=== PATIENT | male | born 1985 | race African-American/Black ===

== ENCOUNTER 2017-04-10 08:49 | Inpatient (IN) ==
[2017-04-10] MEDS ORDERED: ONDANSETRON 4 MG/2 ML VIAL IV STA (09:12)
[2017-04-10] MEDS ORDERED: SODIUM CHLORIDE 0.9% 1,000 ML IV STA (09:12)
[2017-04-10] MEDS ORDERED: hydrALAZINE 20 MG/1 ML VIAL IV STA (09:13)
[2017-04-10] MEDS ORDERED: METOPROLOL TARTRATE 5 MG/5 ML VIAL IV STA ×2 (09:13→10:10)
[2017-04-10] MEDS ORDERED: ONDANSETRON 4 MG/2 ML VIAL ONE (09:20)
[2017-04-10] MEDS ORDERED: hydrALAZINE 20 MG/1 ML VIAL ONE (09:20)
[2017-04-10] MEDS ORDERED: METOPROLOL TARTRATE 5 MG/5 ML VIAL IV ONE ×2 (09:21→10:10)
--- NOTE | 2017-04-10 09:23 | Emergency Department Note ---
Sarah Chan Rolonda, am scribing for, and in the presence of, Aidan Pelayo MD 09: 12. Gita Chan James D, MD, personally performed the services described in this documentation, ascribed by Lionel Smith in my presence, and it is both accurate and complete 915 . Arrival - Arrival Chief Complaint: Abdominal / Flank Pain Stated Complaint: eyes red and abd pain ED Nursing Triage Note: pt ambulatory to triage with c/o havng abd pain with n/ v. pt states onset last night around 1900. pt states he thinks its the fast food he ate yestereday. pt states he hasnt been able to keep his bp meds down so bp is elevated. Mode of Arrival: Ambulatory Limitations: No Limitations Source: Patient, Old Records Reviewed, RN Notes Reviewed - History of Present Illness HPI Narrative: Pt is a 32 y/o male who ambulated to the ED with c/o of right sided abdomen pain with an onset of hours ago. Pt has a PMHx of HTN. Pt stated that the pain started last night while earing [employer]. Pt confirms associated sxs of N/V but denies having any abdomen surgery. No other complaint/pain in ED. Onset (ago): hour(s) Consistency: constant Severity: moderate Severity scale (1-10): 4 Allergies/Adverse Reactions: Allergies Allergy/AdvReac Type Severity Reaction Status Date / Time No Known Allergies Allergy Verified 04/10/17 09:00 Home Medications: Home Medications Medication Instructions Recorded Confirmed Type Lisinopril 20 mg PO DAILY #30 tablet 10/11/15 04/10/17 Rx amLODIPine [Norvasc] 10 mg PO DAILY #30 tablet 10/11/15 04/10/17 Rx Review of System - Review of System 12 point system: reviewed and no additional remarkable complaints except as stated - Review of System Constitutional: Absent: fever Eyes: Absent: discharge Head/Ears/Nose/Throat: Absent: earache Respiratory: Absent: cough Cardiovascular: Absent: chest pain Gastrointestinal: Present: abdominal pain, nausea, vomiting Genitourinary male: Absent: dysuria Musculoskeletal: Absent: arm pain, back pain Skin: Absent: rash Neurological: Absent: headache Medical,Surgical,& Family Hx - Medical History Cardio: History of: Hypertension Gastrointestinal: History of: GERD - Social History Smoking Status: Current every day smoker Frequency of Alcohol Use: Occasionally Type of Drug Use: None Exam Vital Signs: Vital Signs Temperature 98.4 F 04/10/17 09:00 Pulse Rate 89 04/10/17 12:30 Respiratory Rate 14 04/10/17 12:30 Blood Pressure 229/137 04/10/17 12:30 O2 Sat by Pulse Oximetry 99 04/10/17 12:30 GENERAL: This is a well-nourished well-developed black male in no apparent distress. VITAL SIGNS: Reviewed HEENT: Head is atraumatic and normocephalic. Pupils are equal round react to light. Extraocular movements are intact. Bilateral sub-conjunctival hemorrhages. Oropharynx is benign with moist mucous membranes. NECK: Neck is soft and supple without tenderness. There are no masses. There is no lymphadenopathy. LUNGS: Lungs are clear to auscultation. Chest rises symmetrically. There is no chest wall tenderness. CV: Heart is regular rate and rhythm without murmurs rubs or gallops. ABDOMEN: Abdomen is soft, tender to palpation in the right upper quadrant without rebound or guarding. There are no abdominal abnormal masses palpated. There is no organomegaly. Bowel sounds are present and active. SKIN: Skin is warm and dry. No rash. EXTREMITIES: Patient has full range of motion without tenderness. There is no pedal edema. NEUROLOGIC: Awake alert oriented 4. Cranial nerves II through XII are intact. Motor is 5 over 5 in all extremities bilaterally. Course Course Narrative: Patient was given IV fluids, Zofran, Apresoline, and Lopressor in the emergency department. Cardene infusion was started in the emergency department. - Consultations Consultation #1: Discussed with hospitalist. Patient will be admitted to their service. Time: 11:26 Results - Labs CBC & BMP: 04/10/17 09:29 04/10/17 09:29 Lab Results: I have reviewed the patients labs - Diagnostic Findings Procedure: Abdominal x-ray: image reviewed by me (Nonspecific gas pattern, no free air,), Chest x-ray: image reviewed by me (Cardiomegaly, no pleural effusions, no infiltrates.), Ultrasound: report reviewed by me, pending ( Gallbladder ultrasound: No evidence of cholelithiasis or cholecystitis.) Critical Care Time Critical Care Time: Yes Total Critical Care Time: 60 Disposition Clinical Impression: Nausea and vomiting, Right upper quadrant abdominal pain, Hypertensive urgency Case discussed with: patient Disposition: Still a Patient Condition: Stable
[2017-04-10 09:44] LABS: Basophils % 0.3 % (0.0-0.8); Eosinophils # 0.1 10*3/uL (0.0-0.87); Eosinophils % 0.8 % (0.00-10.9); Hematocrit 48.4 VOL% (42.0-52.0); Hemoglobin 16.7 GM/DL (14.0-18.0); Immature Granulocytes % 0.4 %; Immature Granulocytes Absolute 0.04 #; Lymphocytes # 2.1 10*3/uL (1.4-4.0); Lymphocytes % 20.9 % (21.2-54.2); Mean Corpuscular HGB Conc 34.5 GM/DL (32-36); Mean Corpuscular Hemoglobin 29 PG (27-34); Mean Corpuscular Volume 83.4 FL (87-102); Mean Platelet Volume 9.2 FL (9.6-12.0); Monocytes # 0.4 10*3/uL (0.11-0.8); Monocytes % 4.5 % (1.7-12.7); Neutrophils # 7.2 10*3/uL (1.4-7.4); Neutrophils % 73.1 % (38.7-73.9); Platelet Count 241 T/CUMM (130-400); Red Cell Distribution Width 13.4 % (9.3-17.3); White Blood Count 9.8 T/CUMM (4-12)
--- NOTE | 2017-04-10 10:04 | Ultrasound Report ---
Right upper quadrant ultrasound Indication: Abdominal Pain, right side with nausea vomiting Findings: The liver is normal in size and echogenicity. The gallbladder is fluid-filled without evidence of stones or sludge. The gallbladder wall thickness is 1.8 mm . The common bile duct measures 3.0 mm. The visualized portion of the pancreas appear within normal limits The right kidney is normal in size and echogenicity and measures 8.7 cm . No free fluid or free air seen. Impression: No evidence of abnormality demonstrated. Ultrasound images stored and captured. PROCEDURE INTERPRETED AT [facility] DEPARTMENT OF RADIOLOGY Final Report Signed by: Dr. Derrick Lopez
[2017-04-10 10:07] LABS: Albumin 4.3 G/DL (3.4-5.0); Bilirubin,Total 0.6 MG/DL (0.2-1.0); Calcium 8.9 MG/DL (8.5-10.1); Osmolality,Calculated 277.5 MOS/KG (273-304); Potassium 3.1 MMOL/L (3.5-5.1); Total Protein 8.3 G/DL (6.4-8.3)
--- NOTE | 2017-04-10 10:17 | XRay Report ---
XR chest 1V portable Indication: Abdominal pain Comparison: 10 October 2015 Findings: The heart and mediastinum are normal in size and configuration. The pulmonary vascularity is normal in caliber. No lung infiltrates, effusions, pneumothorax or other abnormality is demonstrated. Impression: Normal chest x-ray PROCEDURE INTERPRETED AT [facility] DEPARTMENT OF RADIOLOGY Final Report Signed by: Dr. Derrick Lopez
--- NOTE | 2017-04-10 10:18 | XRay Report ---
XR abdomen 2V Indication: Abdominal pain Comparison: 10 October 2015 Findings: No free fluid or free air seen. The bowel gas pattern appears within normal limits. No abnormal calcifications are present. No other abnormality is identified. Impression: No evidence of abnormality demonstrated. PROCEDURE INTERPRETED AT [facility] DEPARTMENT OF RADIOLOGY Final Report Signed by: Dr. Derrick Lopez
[2017-04-10 11:01] LABS: Apearance,Urine CLEAR (Clear); Bilirubin,Urine Negative (Negative); Blood, Urine Negative (Negative); Glucose,Urine (UA) 50 mg/dL (Negative); Ketones,Urine Negative (Negative); Nitrite,Urine Negative (Negative); Protein,Urine 30 MG/DL; RBC,Urine 2 /HPF (0-4); Urine Color Straw (Yellow); Urine Specific Gravity 1.006 (1.001-1.035); Urine Urobilinogen < 2.0 EU/DL (0.2-1.0); WBC,Urine 1 /HPF (0-6)
[2017-04-10] MEDS ORDERED: niCARdipine 25 MG/10 ML VIAL IV ONE (11:31)
[2017-04-10] MEDS: niCARdipine INJ 25 MG in SODIUM CHLORIDE 0.9% 240 ML IV SCH ×4 (11:52→21:37)
[2017-04-10] MEDS ORDERED: SODIUM CHLORIDE 0.9% 1,000 ML IV SCH (12:00)
--- NOTE | 2017-04-10 12:33 | Hospitalist History & Physical ---
Assessment and Plan (1) Non compliance w medication regimen Status: Acute Assessment and plan: The patient reluctantly reported that he is largely noncompliant with his current medication regimen. He reports that he had not taken his medication" months". He reported that he recently started back taking medications when he started to "feel bad". Discussed with the patient in great detail regarding the need to remain compliant with medication regimen to prevent undesired complications. Patient verbalized understanding of instructions. Current Visit: Yes (2) Essential hypertension Status: Acute Assessment and plan: The patient was noted to be grossly hypertensive at the time of ED presentation ; the blood pressure noted at 242/180. The patient was given multiple antihypertensive agents in an attempt to lower his blood pressure with minimal success. The patient was started on Cardene in the ED and remains hypertensive at the time of encounter. The patient will be placed in the critical care unit and additional antihypertensive agents will be started. We will obtain an echocardiogram, carotid Doppler, renal ultrasound, hemoglobin A1c, and lipid panel for review. Current Visit: Yes (3) Nausea and vomiting Status: Acute Current Visit: Yes (4) Right upper quadrant abdominal pain Status: Acute Assessment and plan: Abdominal x-ray was essentially negative for any acute intra-abdominal processes. Gallbladder ultrasound reported no evidence of cholelithiasis or cholecystitis. The patient presented with nausea and vomiting. Upon examination the patient was noted to have some mild tenderness to the right upper quadrant. We will medicate as needed and monitor. Current Visit: Yes History of Present Illness Chief complaint: Nausea and vomiting History of present illness: This is a very pleasant 32-year-old male that presented to the ED at [facility] this morning for the evaluation of nausea vomiting. Patient has a medical history significant for hypertension and current nicotine use and reported no surgical history at the time of encounter. The patient reported the onset of symptoms on last night. He reported that he was eating at crystals when the onset of nausea and vomiting started. In addition, the patient reported right-sided abdominal pain. He became concerned when the pain became persistent and presented to the ED for further evaluation. The patient was assessed at the time of ED encounter. The patient was noted to be grossly hypertensive with a blood pressure noted at 242/180. Multiple antihypertensive agents were administered immediately however the patient's blood pressure remained persistently high. The patient was subsequently started on a Cardene drip and remains markedly elevated at 242/180 at the time of encounter. Labs were obtained at the time of ED presentation; complete blood count reported white blood cell count 9.8, hemoglobin 16.7, hematocrit 40.4, and platelet count of 241. Comprehensive metabolic profile reported sodium at 139, potassium 3.1, chloride 103, carbon dioxide 28, BUN 11, creatinine 1.50, glucose 131, calcium 8.9, AST 27, alkaline phosphatase 81, ALT 24, lipase 641. Urinalysis was essentially unremarkable. Abdominal x-ray was essentially unremarkable for any acute intra-abdominal processes. Chest x-ray was essentially unremarkable. Ultrasound of the gallbladder reported no evidence of abnormality demonstrated. After brief discussion with both Dr. Pelayo and Dr. Justin, the patient will be admitted to the hospitalist service for continuation of care. Due to the gross elevation in the patient's blood pressure, the patient will be placed in the critical care setting for continuous monitoring. Home medications have been reviewed and reconciled. CODE STATUS discussed; the patient is a FULL CODE. Home Medications Medication Instructions Recorded Confirmed Type Lisinopril 20 mg PO DAILY #30 tablet 10/11/15 04/10/17 Rx amLODIPine [Norvasc] 10 mg PO DAILY #30 tablet 10/11/15 04/10/17 Rx Allergies Allergy/AdvReac Type Severity Reaction Status Date / Time No Known Allergies Allergy Verified 04/10/17 09:00 Medical,Surgical,& Family Hx - Medical History Cardio: History of: Hypertension Gastrointestinal: History of: GERD - Social History Smoking Status: Current every day smoker Frequency of Alcohol Use: Occasionally Type of Drug Use: None Marital Status: Single Lives With:: Alone Functional capacity: independent ambulation 12 point system: reviewed and no additional remarkable complaints except as stated Exam - Constitutional Vitals: Period Temp Pulse Resp BP Sys/Archibald Pulse Ox Last 24 Hr 98.4 F-98.4 F 76-93 15-22 217-242/152-180 97-99 General appearance: normal weight, no acute distress - Head Head exam: Present: normal inspection, normocephalic, atraumatic - Eye Eye exam: Present: EOMI, other (Subconjunctival hemorrhage) Pupils: Present: MARY, normal accommodation - ENT ENT exam: Present: normal exam, normal external ear exam, normal oropharynx - Neck Neck exam: Present: normal inspection. Absent: lymphadenopathy, meningismus, tenderness, thyromegaly - Respiratory Respiratory exam: Present: clear to auscultation bilaterally. Absent: rales, rhonchi, stridor, wheezes - Cardiovascular Cardiovascular exam: Present: regular rate and rhythm, tachycardia. Absent: carotid bruit, diastolic murmur, gallop, JVD, rubs, systolic murmur - GI/Abdominal GI/Abdominal exam: Present: normal bowel sounds, tenderness (Right upper quadrant) - Extremities Exam Extremities exam: Present: normal inspection, normal capillary refill, full ROM , edema - Back Exam Back exam: Present: normal inspection - Neurological Exam Neurological exam: Present: alert, oriented X3, CN II-XII intact - Psychiatric Psychiatric exam: Present: normal affect, normal mood - Skin Skin exam: Present: normal color, warm, dry Results - Labs CBC & BMP: 04/10/17 09:29 04/10/17 09:29 Lab Results: I have reviewed the past 24 hour labs
[2017-04-10 12:54] LABS: Barbiturates Screen,Urine Negative (Negative); Benzodiazepines Screen,Urine Negative (Negative); Cannabinoid Screen,Urine Positive (Negative); Opiate Screen,Urine Negative (Negative); Phencyclidine Screen,Urine Negative (Negative); Risk Ratio 3.89; VLDL CHOLESTEROL 10.6 MG/DL
[2017-04-10] MEDS ORDERED: ACETAMINOPHEN 325 MG TABLET PO PRN (13:11)
[2017-04-10] MEDS ORDERED: ONDANSETRON 4 MG/2 ML VIAL IV PRN (13:11)
--- NOTE | 2017-04-10 13:12 | Ultrasound Report ---
Renal ultrasound Indication: Hypertension Comparison: None available Findings: Kidneys are normal in size. There is a simple appearing cyst on the right kidney that measures up to 9 mm in size. Remaining renal echogenicity is normal. No hydronephrosis or nephrolithiasis is seen. The right renal length is 11.0 cm. The left renal length is 9.1 cm. No free fluid or other abnormality is seen. Impression: Simple appearing right renal cyst. No other evidence of abnormality demonstrated. Ultrasound images stored and captured. PROCEDURE INTERPRETED AT [facility] DEPARTMENT OF RADIOLOGY Final Report Signed by: Dr. Derrick Lopez
--- NOTE | 2017-04-10 13:16 | Ultrasound Report ---
Exam:US carotid duplex BI Date:04/10/2017 12:30 PM Indication: Hypertension Technique: Color Doppler, wave form analysis, and grayscale analysis of the cervical carotid arteries was performed. Findings: There is no significant plaque in either carotid bulb. There is antegrade flow in either vertebral artery. There is 16-49% diameter reduction narrowing of either internal carotid artery using indirect NASCET criteria. Impression: No hemodynamically significant stenosis of the internal carotid arteries Right Side Flow velocities centimeters per second Common carotid artery: 108 Proximal ICA:54.3 Distal ICA:84.3 External carotid artery:83.0 Vertebral artery:53.0 ICA/CCA ratio: 0.8 Measurements in millimeters Distal ICA: 4.6 Left SIde Flow velocities centimeters per second Common carotid artery 142 Proximal ICA:39.2 Distal ICA:87.5 External carotid artery:122.1 Vertebral artery:70.4 ICA/CCA ratio: 0.6 Measurements in millimeters Distal ICA: 5.0 Today studies were performed utilizing indirect NASCET criteria PROCEDURE INTERPRETED AT [facility] DEPARTMENT OF RADIOLOGY Final Report Signed by: Dr. Liliana Garza
[2017-04-10] MEDS ORDERED: ZALEPLON 5 MG CAPSULE PO PRN (14:40)
[2017-04-10] MEDS: LISINOPRIL 20 MG TABLET PO SCH (14:55)
[2017-04-10] MEDS: amLODIPine 10 MG TABLET PO SCH (14:56)
--- NOTE | 2017-04-10 15:22 | ECHO Report ---
Pancho Majano Exam Date: 04/10/2017 13:07 Referring Physician: Technologist: divya Ivory ARDMS, RVT Age: 32 Ht (in): 70 Wt (lb): 210 Gender: M Exam Location: [facility] Echo Indications: Essential (primary) hypertension BP: 181 / 101 HR: 97 Rhythm: Sinus Technical Quality: average IMPRESSIONS Left ventricular ejection fraction is estimated at >65%. Diastolic parameters appear to be most consistent with grade 1 diastolic dysfunction impaired relaxation. Tricuspid regurgitation velocities suggest a RVSP of 21 mmHg plus the right atrial pressure (IVC not visualized). There is at least moderate sized pericardial effusion. MEASUREMENTS (Male / Female) Normal Values 2D ECHO LV Diastolic Diameter PLAX 4.6 cm 4.2 - 5.9 / 3.9 - 5.3 cm LV Systolic Diameter PLAX 1.6 cm LV Fractional Shortening PLAX 65.6 % IVS Diastolic Thickness 1.9 cm 0.6 - 1.0 / 0.6 - 0.9 cm LVPW Diastolic Thickness 1.9 cm 0.6 - 1.0 / 0.6 - 0.9 cm RV Internal Dim ED PLAX 3.7 cm Aortic Root Diameter 3.1 cm LA Systolic Diameter LX 4.0 cm 3.0 - 4.0 / 2.7 - 3.8 cm DOPPLER TR Peak Velocity 227.0 cm/s TR Peak Gradient 20.6 mmHg FINDINGS Left Ventricle Normal left ventricular cavity size. Severe concentric left ventricular hypertrophy. Left ventricular ejection fraction is estimated at >65%. Diastolic parameters appear to be most consistent with grade 1 diastolic dysfunction impaired relaxation Right Ventricle The right ventricle is normal in size and function. Right Atrium The right atrium is normal in size. Left Atrium The left atrium is mildly enlarged. Mitral Valve Mitral valve sclerosis. Trace mitral valve regurgitation. Aortic Valve There is good trileaflet excursion aortic valve maximum velocity across the valve is 2.3 m/s with a VTI of 35.7 LVOT VTI is 33.1. The left ventricle is hyperdynamic. Tricuspid Valve Morphologically normal tricuspid valve. Trace tricuspid valve regurgitation. Tricuspid regurgitation velocities suggest a RVSP of 21 mmHg plus the right atrial pressure (IVC not visualized). Pulmonic Valve Morphologically normal pulmonic valve. Trace pulmonary valve regurgitation. Pericardium There is at least moderate sized pericardial effusion. There is no interrogation of the mitral and tricuspid inflow associated with respirations. There is some serpentine generous movement of the right atrial and right ventricular free amaya. There is no interrogation for possible impending tamponade. Aorta Normal ascending aorta dimension. Enedelia Holm (Electronically Signed) Final Date: 10 April 2017 15:21
[2017-04-10] MEDS: FAMOTIDINE 20 MG TABLET PO SCH (19:21)
[2017-04-11 05:24] LABS: Basophils % 0.3 % (0.0-0.8); Eosinophils # 0.1 10*3/uL (0.0-0.87); Eosinophils % 1.1 % (0.00-10.9); Hematocrit 43.7 VOL% (42.0-52.0); Immature Granulocytes % 0.5 %; Immature Granulocytes Absolute 0.06 #; Lymphocytes # 2.8 10*3/uL (1.4-4.0); Lymphocytes % 25.5 % (21.2-54.2); Mean Corpuscular HGB Conc 34.3 GM/DL (32-36); Mean Corpuscular Hemoglobin 29 PG (27-34); Mean Corpuscular Volume 83.1 FL (87-102); Mean Platelet Volume 9.4 FL (9.6-12.0); Monocytes # 0.7 10*3/uL (0.11-0.8); Monocytes % 5.9 % (1.7-12.7); Neutrophils # 7.3 10*3/uL (1.4-7.4); Neutrophils % 66.7 % (38.7-73.9); Platelet Count 231 T/CUMM (130-400); Red Blood Count 5.26 MC/CUMM (3.8-5.5); Red Cell Distribution Width 13.4 % (9.3-17.3); White Blood Count 10.9 T/CUMM (4-12)
[2017-04-11] MEDS: niCARdipine INJ 50 MG in SODIUM CHLORIDE 0.9% 480 ML IV SCH (06:08)
[2017-04-11 06:13] LABS: Albumin 3.4 G/DL (3.4-5.0); Calcium 8.6 MG/DL (8.5-10.1); Magnesium 2.2 MG/DL (1.8-2.4); Osmolality,Calculated 275.5 MOS/KG (273-304); Potassium 3.2 MMOL/L (3.5-5.1); Total Protein 6.6 G/DL (6.4-8.3)
[2017-04-11] MEDS ORDERED: POTASSIUM CHLORIDE 20 MEQ TABLET PO ONE (07:51)
[2017-04-11] MEDS: SPIRONOLACTONE 25 MG TABLET PO SCH ×3 (08:06→09:41)
[2017-04-11] MEDS: amLODIPine 10 MG TABLET PO SCH (08:23)
[2017-04-11] MEDS: LISINOPRIL 20 MG TABLET PO SCH (08:23)
[2017-04-11] MEDS: FAMOTIDINE 20 MG TABLET PO SCH ×2 (08:23→21:09)
[2017-04-11] MEDS: PANTOPRAZOLE 40 MG TABLET PO SCH (08:23)
[2017-04-11] MEDS: ASPIRIN CHEW 81 MG TABLET PO SCH (08:24)
[2017-04-11] MEDS: hydrALAZINE 20 MG/1 ML VIAL IV PRN ×3 (08:46→18:05)
[2017-04-11] MEDS ORDERED: amLODIPine 10 MG TABLET PO SCH (09:00)
[2017-04-11] MEDS ORDERED: LISINOPRIL 20 MG TABLET PO SCH (09:00)
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
[2017-04-11] MEDS ORDERED: cloNIDine 0.1 MG/24 HR PATCH TRANSDERM SCH (11:00)
[2017-04-11] MEDS: DILTIAZEM CD 120 MG CAPSULE PO SCH (11:14)
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
[2017-04-11] MEDS ORDERED: cloNIDine 0.1 MG TABLET PO SCH (15:00)
[2017-04-12] MEDS: niCARdipine INJ 50 MG in SODIUM CHLORIDE 0.9% 480 ML IV SCH (01:15)
[2017-04-12] MEDS: DILTIAZEM CD 120 MG CAPSULE PO SCH (08:04)
[2017-04-12] MEDS: LISINOPRIL 20 MG TABLET PO SCH (08:04)
[2017-04-12] MEDS: PANTOPRAZOLE 40 MG TABLET PO SCH (08:04)
[2017-04-12] MEDS: SPIRONOLACTONE 25 MG TABLET PO SCH (08:04)
[2017-04-12] MEDS: FAMOTIDINE 20 MG TABLET PO SCH (08:04)
[2017-04-12] MEDS: ASPIRIN CHEW 81 MG TABLET PO SCH (08:05)
[2017-04-12] MEDS: amLODIPine 10 MG TABLET PO SCH (08:05)
--- NOTE | 2017-04-12 08:21 | Hospitalist Progress Note ---
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 Patient for possible operative repair today. Current Visit: Yes (2) Uncontrolled hypertension Status: Chronic Assessment and plan: Add Cardizem to Norvasc and lisinopril. Wean off Cardene. 04/12/17 Cardene has been weaned off as of yesterday at 4 PM. The above combination of medications appears to be controlling his blood pressure. Aldactone was added. Current Visit: Yes (3) Non compliance w medication regimen Status: Chronic Current Visit: Yes (4) Hypertensive urgency Status: Acute Current Visit: Yes (5) Hypokalemia Status: Acute Assessment and plan: Replaced with oral potassium. Add Aldactone Current Visit: Yes Hospitalist: Subjective Interval history: Patient seen and examined. No acute events overnight. Case discussed with nursing staff. Labs reviewed. Cardene drip was discontinued yesterday afternoon. The blood pressure has been stable. The case was discussed with Dr. Wilson who is considering ligation of the superficial temporal artery AV fistula today. The patient has not eaten breakfast and has been made n.p.o. He has taken his oral blood pressure medications this morning with a small sip of Sprite. Exam - Constitutional Vitals: Period Temp Pulse Resp BP Sys/Archibald Pulse Ox Last 24 Hr 97.9 F-98.7 F 73-104 13-96 110-220/65-138 93-100 Exam: Constitutional System: No distress. No tremulousness. Head: Normocephalic, atraumatic. Ears, Nose and Throat System: No pain or tenderness. No epistaxis or discharge. Left temporal artery AV fistula noted. Eyes System: Pupils equal, round, and reactive. Extraocular muscles intact. Neck: Supple, without adenopathy, No jugular venous distention. Respiratory System: Chest clear to auscultation. Cardiovascular System: Heart with regular rate and rhythm. No murmur. GI System: Abdomen soft, nontender. Normo active bowel sounds present. Musculoskeletal System: limbs with no pedal edema. Full distal pulses. Neurological System: No discernable sensory deficit. No aphasia Psychiatric System: Conversation is rational Results - Labs CBC & BMP: 04/11/17 04:57 04/11/17 04:57 Lab Results: I have reviewed the past 24 hour labs
--- NOTE | 2017-04-12 08:30 | Vascular Surgery Consult Note ---
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 Majano blood pressure is now under good control and he is interested in proceeding with AV fistula ligation while here. I have explained this procedure to him thoroughly have be done and the potential risks of recurrence of bleeding and the very unlikely risk to the facial nerve injury. He agrees and we will schedule for today ligation of the left temporal artery AV fistula Current Visit: Yes History of Present Illness History of present illness: Mr. Majano is a 32 year old male Home Medications Medication Instructions Recorded Confirmed Type Lisinopril 20 mg PO DAILY #30 tablet 10/11/15 04/10/17 Rx amLODIPine [Norvasc] 10 mg PO DAILY #30 tablet 10/11/15 04/10/17 Rx Allergies Allergy/AdvReac Type Severity Reaction Status Date / Time No Known Allergies Allergy Verified 04/10/17 09:00 Medical,Surgical,& Family Hx - Medical History Cardio: History of: Hypertension Gastrointestinal: History of: GERD - Social History Smoking Status: Current every day smoker Frequency of Alcohol Use: Occasionally Type of Drug Use: None Exam - Constitutional Vitals: Period Temp Pulse Resp BP Sys/Archibald Pulse Ox Last 24 Hr 97.9 F-98.7 F 73-104 13-96 110-220/65-138 93-100 Results - Labs CBC & BMP: 04/11/17 04:57 04/11/17 04:57
[2017-04-12] MEDS ORDERED: DIAZEPAM 5 MG TABLET PO ONE (08:35)
[2017-04-12] MEDS ORDERED: BUPIVACAINE 0.5% /EPI 10 ML VIAL ONE (08:48)
[2017-04-12] MEDS ORDERED: TISSUE ADHESIVE 1 EACH APPLICATOR TOP ONE (08:48)
[2017-04-12] MEDS ORDERED: VANCOMYCIN 500 MG VIAL ONE (08:48)
[2017-04-12] MEDS ORDERED: LIDOCAINE 1%/EPI INJ 20 ML VIAL ONE (08:48)
[2017-04-12 08:54] LABS: PT Patient Result 10.7 SECS
[2017-04-12 09:15] LABS: Calcium 9.2 MG/DL (8.5-10.1); Magnesium 2.2 MG/DL (1.8-2.4); Osmolality,Calculated 276.5 MOS/KG (273-304); Potassium 3.4 MMOL/L (3.5-5.1)
[2017-04-12] MEDS ORDERED: LACTATED RINGERS 1,000 ML IV SCH (09:30)
--- NOTE | 2017-04-12 10:22 | Operative Note ---
Date of procedure: 04/12/17 Procedure: Dr. Moya operative report David Majano. Surgeon: Nita Anesthesia: Terrance MARIN Preoperative diagnosis: Traumatic AV fistula left superficial temporal artery Postoperative diagnosis: Same Procedure: Ligation and excision AV fistula left superficial temporal artery Indication for the procedure: [id number]-[id number]-old man has been admitted with hypertensive crisis and this is resolved but he has been found to have an AV fistula involving his left superficial temporal artery just anterior and superior to the tragus of the ear. This apparently has developed following an traumatic accident approximately a year ago I recommended excision and ligation of explained the alternatives risks and complications which he understands and accepts Description of the procedure: After the patient received sedation his left face and ear are prepped with ChloraPrep and draped in usual fashion I infiltrated a mixture of lidocaine and epinephrine and 0.5% Marcaine using a total of 20 cc around the area with the old scar made an incision and work my way down to the superficial temporal artery or with Doppler there was a clear AV fistula I was able to ligate the superficial temporal artery at this level but there continued to be flow in the fistula that was bulging above and then worked my way through the old scar around the AV fistula itself and found actually 3 other connections to the superficial temporal artery these were ligated with 4 oh silks in the fistula itself was excised and sent to pathology hemostasis was good I irrigated with saline and vancomycin placed us pledget of Surgicel closed with 4-0 Monocryl surgical glue blood loss is estimated at 150 cc and needle counts are correct patient taken to recovery in good condition Surgeon / Physician: Hermilo Moya Results - Labs CBC & BMP: 04/11/17 04:57 04/12/17 08:28 Discharge Plan - Discharge Medications No Action Lisinopril 20 mg PO DAILY #30 tablet amLODIPine [Norvasc] 10 mg PO DAILY #30 tablet - Follow Up or Referral - Forms/Instructions
[2017-04-12] MEDS ORDERED: PROPOFOL 200 MG/20 ML VIAL IV ONE (10:39)
[2017-04-12] MEDS ORDERED: SODIUM CHLORIDE 0.9% 100 ML IV ONE (10:40)
[2017-04-12] MEDS ORDERED: ONDANSETRON 4 MG/2 ML VIAL ONE (10:40)
[2017-04-12] MEDS ORDERED: MIDAZOLAM 2 MG/2 ML VIAL ONE (10:40)
[2017-04-12] MEDS ORDERED: fentaNYL 100 MCG/2 ML VIAL ONE (10:40)
--- NOTE | 2017-04-12 13:40 | Discharge Summary ---
Hospital Course - Hospital Course Hospital Course: 32-year-old black male admitted to the hospital with hypertensive urgency and emergency. He was treated with IV Cardene and started on lisinopril, Norvasc and Cardizem. His blood pressure has improved and he is ready for discharge home. During the course of his hospitalization he was found to have a left superficial temporal artery AV fistula. This is believed to be the sequela of traumatic injury 1 year ago. He was seen in consultation by Dr. Wilson. He underwent ligation and dissection and removal of the AV fistula that had formed in the left temporal area. The patient has been stable after surgery and is ready for discharge home. He will follow-up with Dr. Wilson in 1 week at the office. He was instructed advised to take his medication as prescribed. His prescriptions were sent to Mr. mcdaniels. Pain medication was prescribed and the prescription was printed and given to the patient. - Time spent with patient Time with patient DS: Greater than 30 minutes (Total discharge time for this patient, including [id number] time, clinical documentation, medication reconciliation, and discharge planning was 36 minutes.) Diagnosis - Discharge Diagnosis (1) Aneurysm of superficial temporal artery Status: Resolved (2) Uncontrolled hypertension Status: Chronic (3) Non compliance w medication regimen Status: Chronic (4) Hypertensive urgency Status: Resolved (5) Hypokalemia Status: Resolved Discharge Plan - Discharge Data Disposition: Disch To Home/Self Care Condition at Discharge: Stable Discharge Diet: advance to your usual diet Activity: resume usual activities as tolerated Hygiene: no restrictions Contact your physician if you experience:: Nausea/Vomiting, Shortness of breath , Bleeding, pain uncontrolled by pain medications - Discharge Medications New Diltiazem Cd Cap [Cardizem CD] 120 mg PO DAILY #30 capsule HYDROcodone/ACETAMIN 5-325 [[place] 5-325] 1 tablet PO Q6H PRN #20 tablet PRN Reason: Pain Moderate (4-7) Spironolactone [Aldactone] 25 mg PO DAILY #30 tablet Aspirin Chew Tab 81 mg PO DAILY tablet Famotidine Tab [Pepcid Tab] 20 mg PO BID tablet Continue amLODIPine [Norvasc] 10 mg PO DAILY #30 tablet Lisinopril 20 mg PO DAILY #30 tablet - Follow Up or Referral Follow Up: Hermilo Moya MD [Physician] - 1 Week - Forms/Instructions Exam - Constitutional Vitals: Period Temp Pulse Resp BP Sys/Archibald Pulse Ox Last 24 Hr 97.4 F-98.7 F 70-101 13-96 103-182/40-118 93-99 Discharge Results Procedures and tests throughout hospitalization: Pending Orders 04/10/17 09:29 Drug Screen Prescrip/OTC Urine Stat Labs on day of discharge: Labs from last 24 hours 04/12/17 04/12/17 08:28 08:28 INR 1.0 PT Patient/Control Mix 10.7 Sodium 139 Potassium 3.4 L Chloride 103 Carbon Dioxide 29 Anion Gap 10.4 BUN 11 Creatinine 1.30 GFR Calculation 98 BUN/Creatinine Ratio 8.00 Glucose 123 H Calculated Osmolality 276.5 Calcium 9.2 Magnesium 2.2 DS: Provider Date of admission: 04/10/17 12:19 Primary care physician: . No PCP Attending physician on admission: Dougie Justin MD Consults: 04/11/17 10:35 Consult to Physician [CONS] Routine Comment: temporal artery aneurysm Consulting Provider: Hermilo Moya Person Notified: Marine Date Notified: 04/11/17 Time Notified: 10:51 Consult Notification Comment: Will notify Dr. Pardo instead of Dr. Moya due to case request 13:[address] Moya, will be his case Discharging clinician: Dougie Justin MD Expected date of discharge: 04/12/17
--- NOTE | 2017-04-12 14:56 | Anesthesia Post-Op ---
Anesthesia Post OP - Post Ansesthetic Evaluation Patient seen in post op: Yes Resp: within normal limits CV: within normal limits Mental: within normal limits Temp: within normal limits [id number]: within normal limits Nausea and Vomiting: within normal limits Pain: within normal limits
[2017-04-12 15:18] VITALS: BP 135/88
--- NOTE | 2017-04-13 11:36 | Pathology Report from [facility] ---
[facility] ACCESSION # : [id number] PATIENT NAME : Pancho Majano ORDERING DR : JOAQUIM JEAN BAPTISTE MD CLINICAL HX: AV fistula LT superficial temporal artery POST-OP DX: Same SPECIMEN INFO: AV fistula GROSS DESCRIPTION: The specimen is received in formalin labeled with the patients name and consists of a hyperemic 2.6 x 2.0 cm fibromembraneous tissue fragment. Starter Mechanic sections submitted in one cassette. DIAGNOSIS FOR PANCHO MAJANO: AV FISTULA W/SUPERFICIAL TEMPORAL ARTERY: Vascular dilatation, degenerative changes/fistula. COLLECTED DATE: 04/12/2017 [facility] REPORT DATE: 04/13/2017 ELECTRONICALLY SIGNED BY: Diane Delcid M.D. 04/13/2017 - 10:02:18 [facility]
== END 2017-04-12 16:21 | disposition home or self-care (01) | DRG 253 ==
LOC: N.ED 08:49 → N.EDINP 12:19 → N.CC 13:45
PROVIDERS: ADMIT Family Medicine; ATTEND Family Medicine

== ENCOUNTER 2017-06-03 12:36 | Inpatient (IN) ==
[2017-06-03] MEDS ORDERED: ONDANSETRON 4 MG/2 ML VIAL IV STA (13:02)
[2017-06-03] MEDS ORDERED: SODIUM CHLORIDE 0.9% 1,000 ML IV STA ×2 (13:02→14:21)
[2017-06-03] MEDS ORDERED: FAMOTIDINE 20 MG/2 ML VIAL IV STA (13:02)
[2017-06-03 13:13] LABS: Basophils % 0.4 % (0.0-0.8); Eosinophils # 0.1 10*3/uL (0.0-0.87); Eosinophils % 0.7 % (0.00-10.9); Hematocrit 48.4 VOL% (42.0-52.0); Hemoglobin 16.6 GM/DL (14.0-18.0); Immature Granulocytes % 0.3 %; Immature Granulocytes Absolute 0.03 #; Lymphocytes # 2.5 10*3/uL (1.4-4.0); Mean Corpuscular HGB Conc 34.3 GM/DL (32-36); Mean Corpuscular Hemoglobin 28 PG (27-34); Mean Corpuscular Volume 82.9 FL (87-102); Mean Platelet Volume 9.3 FL (9.6-12.0); Monocytes # 0.6 10*3/uL (0.11-0.8); Monocytes % 6.4 % (1.7-12.7); Neutrophils % 65.2 % (38.7-73.9); Platelet Count 268 T/CUMM (130-400); Red Blood Count 5.84 MC/CUMM (3.8-5.5); Red Cell Distribution Width 13.2 % (9.3-17.3); White Blood Count 9.2 T/CUMM (4-12)
[2017-06-03] MEDS ORDERED: ONDANSETRON 4 MG/2 ML VIAL ONE (13:18)
[2017-06-03] MEDS ORDERED: FAMOTIDINE 20 MG/2 ML VIAL IV ONE (13:19)
--- NOTE | 2017-06-03 13:21 | Emergency Department Note ---
Stephanie Chan Mantricia, am scribing for, and in the presence of, Aidan Pelayo MD 13:07. Gita Chan James D, MD, personally performed the services described in this documentation, ascribed by Nannette Brown in my presence, and it is both accurate and complete 320 . Arrival - Arrival Chief Complaint: Abdominal / Flank Pain Stated Complaint: stomach pain ED Nursing Triage Note: abd cramping with vomiting that started on after eating [employer]. last bm was morning reports he has not been able to go since then. pt vomiting in bathroom prior to being called back. Mode of Arrival: Ambulatory Limitations: No Limitations Source: Patient Time Seen by Provider: 06/03/17 12:59 - History of Present Illness HPI Narrative: Pt is a 32 y/o black male ambulating to ED with c/o N/V that onset 4 days ago. He also c/o frequent urination since vomiting and abdominal pain. He states that he has vomiting approximately 5 times today. He denies being in any contact with anyone sick and denies seeing blood in his vomit. He states that he has not consumed any ETOH since being ill. He last consumed about 3-4 pints of Sofiya last week. Pt denies ever having pancreatitis. No other complaints were reported to ED. Onset (ago): day(s) Consistency: constant Severity: mild Allergies/Adverse Reactions: Allergies Allergy/AdvReac Type Severity Reaction Status Date / Time No Known Allergies Allergy Verified 04/10/17 09:00 Home Medications: Home Medications Medication Instructions Recorded Confirmed Type Lisinopril 20 mg PO DAILY #30 tablet 04/12/17 06/03/17 Rx amLODIPine [Norvasc] 10 mg PO DAILY #30 tablet 04/12/17 06/03/17 Rx Review of System - Review of System 12 point system: reviewed and no additional remarkable complaints except as stated - Review of System Constitutional: Absent: chills, diaphoresis, fever Respiratory: Absent: cough Cardiovascular: Absent: chest pain Gastrointestinal: Present: abdominal pain, nausea, vomiting. Absent: diarrhea, constipation Genitourinary male: Present: frequency Musculoskeletal: Absent: arm pain, back pain, leg pain, neck pain Medical,Surgical,& Family Hx - Medical History Cardio: History of: Hypertension Gastrointestinal: History of: GERD - Social History Smoking Status: Current every day smoker Exam Vital Signs: Vital Signs Temperature 98.6 F 06/03/17 12:50 Pulse Rate 85 06/03/17 12:50 Respiratory Rate 18 06/03/17 12:50 Blood Pressure 217/155 06/03/17 12:50 O2 Sat by Pulse Oximetry 96 06/03/17 12:50 GENERAL: This is a well-nourished well-developed black male in no apparent distress. VITAL SIGNS: Reviewed HEENT: Head is atraumatic and normocephalic. Pupils are equal round react to light. Extraocular movements are intact. Oropharynx is benign with moist mucous membranes. NECK: Neck is soft and supple without tenderness. There are no masses. There is no lymphadenopathy. LUNGS: Lungs are clear to auscultation. Chest rises symmetrically. There is no chest wall tenderness. CV: Heart is regular rate and rhythm without murmurs rubs or gallops. ABDOMEN: Abdomen is soft, minimal tenderness to palpation epigastrium without rebound or guarding. There are no abdominal abnormal masses palpated. There is no organomegaly. Bowel sounds are present and active. SKIN: Skin is warm and dry. No rash. EXTREMITIES: Patient has full range of motion without tenderness. There is no pedal edema. NEUROLOGIC: Awake alert and oriented 4. Cranial nerves II through XII are grossly intact. Motor is 5 over 5 in all extremities bilaterally. Course Course Narrative: Patient was given 2 L of IV fluids along with Dilaudid and Apresoline while in the emergency department. - Consultations Consultation #1: Discussed with hospitalist. Patient will be admitted to their service. Time: 14:21 Results - Labs CBC & BMP: 06/03/17 13:07 06/03/17 13:07 Lab Results: I have reviewed the patients labs Labs: Laboratory Tests 06/03/17 13:07 Lipase 1679.0 H - Diagnostic Findings Procedure: Abdominal x-ray: image reviewed by me (Nonspecific gas pattern, no free air, gas in the rectum.), Chest x-ray: image reviewed by me (Cardiomegaly, no pleural effusions.) Critical Care Time Critical Care Time: No Disposition Clinical Impression: Nausea and vomiting, Epigastric pain, Acute pancreatitis Disposition: Disch To Home/Self Care Condition: Stable
--- NOTE | 2017-06-03 13:35 | XRay Report ---
2 view abdomen. Comparison: April 10, 2017. The heart is enlarged. There is blunting of the left costal phrenic angle. The pulmonary vasculature is normal. No intra-abdominal organomegaly is seen. No abnormal calcifications over the renal outlines. Stable vascular calcifications within the pelvis. The osseous structures are unremarkable. Impression: No acute abnormality. PROCEDURE INTERPRETED AT [facility] DEPARTMENT OF RADIOLOGY Final Report Signed by: Dr. Meredith Castañeda
--- NOTE | 2017-06-03 13:35 | XRay Report ---
Portable chest. Indication: Generalized abdominal pain. Comparison: April 10, 2017. The heart is enlarged. There is elevation of the left hemidiaphragm and blunting of the left costophrenic angle. The right lung is clear. The pulmonary vasculature is normal. Impression: Cardiomegaly. Scarring at the left lung base. No acute abnormality. PROCEDURE INTERPRETED AT [facility] DEPARTMENT OF RADIOLOGY Final Report Signed by: Dr. Meredith Castañeda
[2017-06-03] MEDS ORDERED: hydrALAZINE 20 MG/1 ML VIAL IV STA (13:39)
[2017-06-03] MEDS ORDERED: hydrALAZINE 20 MG/1 ML VIAL ONE (13:42)
[2017-06-03 13:58] LABS: Albumin 4.4 G/DL (3.4-5.0); Bilirubin,Total 0.7 MG/DL (0.2-1.0); Calcium 9.7 MG/DL (8.5-10.1); Magnesium 2.3 MG/DL (1.8-2.4); Osmolality,Calculated 274.7 MOS/KG (273-304); Potassium 3.9 MMOL/L (3.5-5.1); Total Protein 8.2 G/DL (6.4-8.3)
[2017-06-03 14:07] LABS: Apearance,Urine CLOUDY (Clear); Bilirubin,Urine Negative (Negative); Blood, Urine Negative (Negative); Glucose,Urine (UA) 50 mg/dL (Negative); Ketones,Urine Negative (Negative); Nitrite,Urine Negative (Negative); Protein,Urine 30 MG/DL; RBC,Urine 2 /HPF (0-4); Urine Color Yellow (Yellow); Urine Urobilinogen < 2.0 EU/DL (0.2-1.0); WBC,Urine 3 /HPF (0-6)
[2017-06-03] MEDS ORDERED: HYDROmorphone 2 MG/1 ML VIAL IV STA (14:19)
[2017-06-03] MEDS ORDERED: HYDROmorphone 2 MG/1 ML VIAL ONE (14:26)
[2017-06-03 14:50] LABS: Barbiturates Screen,Urine Negative (Negative); Benzodiazepines Screen,Urine Negative (Negative); Cannabinoid Screen,Urine Positive (Negative); Opiate Screen,Urine Negative (Negative); Phencyclidine Screen,Urine Negative (Negative)
[2017-06-03] MEDS ORDERED: amLODIPine 5 MG TABLET ONE (15:29)
--- NOTE | 2017-06-03 15:33 | Ultrasound Report ---
Gallbladder ultrasound. Indication: Right upper quadrant pain. The liver is normal in size and parenchymal echogenicity, without focal lesion or intrahepatic biliary ductal dilatation. There are no gallstones. There is no gallbladder wall thickening or fluid around the gallbladder. The common duct measures 2 mm. The pancreas is obscured by bowel gas. The right kidney contains a 13 x 14 mm cyst. Impression: No gallbladder abnormality is seen. There is a small cyst on the right kidney. The Ultrasound images were captured and stored. PROCEDURE INTERPRETED AT [facility] DEPARTMENT OF RADIOLOGY Final Report Signed by: Dr. Meredith Castañeda
[2017-06-03] MEDS ORDERED: amLODIPine 5 MG TABLET PO STA (15:34)
--- NOTE | 2017-06-03 15:42 | Hospitalist History & Physical ---
<Usman Bruce - Last Filed: 06/03/17 15:38> Assessment and Plan - Time spent with patient Time spent with patient: Greater than 30 minutes (1) Acute pancreatitis Status: Acute Assessment and plan: Admit to med/surg. Keep NPO. IV fluids. Analgesics. Abdominal CT. Consider GI consult. Repeat lipase in am. Current Visit: Yes (2) Uncontrolled hypertension Status: Chronic Assessment and plan: Given hydralazine and Norvasc in ED. PRN hydralazine. Restart home medications. Monitor BP. Current Visit: No (3) Non compliance w medication regimen Status: Chronic Current Visit: No History of Present Illness Chief complaint: abdominal pain History of present illness: Mr. Majano is a 32 year old -[place] male with a past medical history significant for hypertension who presents to the emergency room today with complaints of abdominal pain having onset this morning. At the time of my exam , the patient is mildly sedated on opioid analgesics. His mother the bedside and provided much of the history. Apparently the patient has been on hospice relationship and may be experiencing some domestic inconveniences. She notes that he does drink heavily, however the patient has apparently denied recent use of alcohol. He did tell the RN prior to my arrival that he drank pretty heavily last week. Patient does confirm generalized abdominal pain, nausea and vomiting, headache. He denies chest pain, shortness of breath, lower extremity edema. Gallbladder ultrasound shows no evidence of gallbladder abnormalities. Lipase is 1670. This case been discussed with Dr. Pelayo, ER physician, and Dr. Martinez, admitting physician, and the patient will be admitted to hospital medicine service for further evaluation and treatment. Patient is a full code. Home medications are reviewed and reconciled. Home Medications Medication Instructions Recorded Confirmed Type Lisinopril 20 mg PO DAILY #30 tablet 04/12/17 06/03/17 Rx amLODIPine [Norvasc] 10 mg PO DAILY #30 tablet 04/12/17 06/03/17 Rx Allergies Allergy/AdvReac Type Severity Reaction Status Date / Time No Known Allergies Allergy Verified 04/10/17 09:00 Medical,Surgical,& Family Hx - Medical History Cardio: History of: Hypertension Gastrointestinal: History of: GERD - Family History Family History: Reports;: Family Heart Disease, Family Hypertension - Social History Smoking Status: Current every day smoker Frequency of Alcohol Use: Frequently Type of Drug Use: Marijuana Marital Status: Single Lives With:: Alone Functional capacity: independent ambulation 12 point system: reviewed and no additional remarkable complaints except as stated Exam - Constitutional Vitals: Period Temp Pulse Resp BP Sys/Archibald Pulse Ox Last 24 Hr 98.6 F-98.6 F 85-85 18-18 217-217/155-155 96 Exam: General appearance: normal weight, no acute distress - Head Head exam: Present: normocephalic, atraumatic - Eye Eye exam: Present: EOMI. Absent: conjunctival injection, nystagmus Pupils: Present: MARY, normal accommodation - ENT ENT exam: Present: normal exam, normal external ear exam - Neck Neck exam: Present: normal inspection. Absent: lymphadenopathy, tenderness, thyromegaly - Respiratory Respiratory exam: Present: clear to auscultation bilaterally. Absent: rales, rhonchi, wheezes - Cardiovascular Cardiovascular exam: Present: regular rate and rhythm. Absent: carotid bruit, gallop, rubs - GI/Abdominal GI/Abdominal exam: Present: normal bowel sounds, diffuse tenderness. Absent: ascites, distended, mass - Extremities Exam Extremities exam: Present: normal inspection, normal capillary refill. Absent: edema - Back Exam Back exam: Absent: CVA tenderness (L), CVA tenderness (R) - Neurological Exam Neurological exam: Present: oriented X3, reflexes normal - Psychiatric Psychiatric exam: Present: normal affect, normal mood - Skin Skin exam: Present: normal color, warm, dry Results - Labs CBC & BMP: 06/03/17 13:07 06/03/17 13:07 Lab Results: I have reviewed the past 24 hour labs - Diagnostic Findings Procedure: Chest x-ray: image reviewed by me, report reviewed by me, X-ray: image reviewed by me, report reviewed by me <Vamsi Martinez - Last Filed: 06/03/17 18:28> History of Present Illness History of present illness: Mr. Majano is a 32 year old male with abdominal pain of approximately one days duration. He has a previous history of alcohol abuse. Evaluation in the emergency department demonstrated elevation of his serum lipase to 1670. I have interviewed and examined the patient and reviewed all available laboratory and radiographic test results. I agree with the assessment and plans of TACOS Murphy. Patient is being admitted to the hospital with a diagnosis of acute pancreatitis. He has been begun on intravenous sodium chloride 0.9% infusion and made n.p.o. status. Further evaluation and treatment to follow. Exam - Constitutional Vitals: Period Temp Pulse Resp BP Sys/Archibald Pulse Ox Last 24 Hr 98.4 F-98.6 F 77-95 16-18 208-270/102-155 96-99 Results - Labs CBC & BMP: 06/03/17 13:07 06/03/17 13:07
[2017-06-03] MEDS ORDERED: LORazepam 2 MG/1 ML VIAL IV PRN (16:26)
[2017-06-03] MEDS: LISINOPRIL 20 MG TABLET PO SCH (16:53)
[2017-06-03] MEDS: SODIUM CHLORIDE 0.9% 1,000 ML IV SCH ×2 (16:53→22:08)
[2017-06-03] MEDS: amLODIPine 10 MG TABLET PO SCH (16:53)
[2017-06-03] MEDS: PANTOPRAZOLE 40 MG TABLET PO SCH (16:53)
--- NOTE | 2017-06-03 17:39 | CT Report ---
CT of the abdomen and pelvis with intravenous contrast. Indication: Generalized abdominal pain. 100 cc Omni 350. Axial images were obtained with sagittal and coronal 2-D reconstructions. No previous study. The heart is enlarged. There is a pericardial effusion present. It measures 16 mm in thickness. There is mild atelectasis or scarring in the left lung base. There is elevation of the left hemidiaphragm. The liver is normal in size and density. No focal liver lesions are identified. There is no intrahepatic biliary ductal dilatation. The spleen is normal in size. There is no adrenal enlargement. There is a 12 mm cyst at the inferior pole of the right kidney. The left kidney presents a normal appearance. There is no ureteral obstruction. The urinary bladder presents a normal appearance. There is a small amount of fluid seen in the fat surrounding the tail of the pancreas. The pancreas perfuses normally. The pancreatic duct is not dilated. There are no focal lesions or calcifications. The abdominal aorta is of normal caliber. Minimal plaque is seen distally. The gastric contour is normal. The loops of small intestine are not dilated. The terminal ileum and appendix present a normal appearance. The colon is not dilated. There is no colonic wall thickening. Mild diverticula are suspected. The prostate gland is normal in size. There are phleboliths within the pelvis. The urinary bladder presents a normal appearance. No adenopathy is seen. Impression: 1. Small amount of fluid adjacent to the tail of the pancreas, with stranding in the surrounding fat suggesting pancreatitis. 2. Pericardial effusion. The CT exam was performed using one or more of the following dose reduction techniques: Automated exposure control, adjustment of the mA and/or kV according to patient size, or use of iterative reconstruction technique. PROCEDURE INTERPRETED AT [facility] DEPARTMENT OF RADIOLOGY Final Report Signed by: Dr. Meredith Castañeda
[2017-06-03] MEDS ORDERED: hydrALAZINE 20 MG/1 ML VIAL IV ONE (18:36)
[2017-06-03] MEDS: HYDROmorphone 2 MG/1 ML VIAL IV PRN ×2 (18:46→23:37)
[2017-06-04] MEDS: SODIUM CHLORIDE 0.9% 1,000 ML IV SCH ×4 (03:48→23:59)
[2017-06-04] MEDS: hydrALAZINE 20 MG/1 ML VIAL IV PRN ×2 (04:35→11:02)
[2017-06-04] MEDS: HYDROmorphone 2 MG/1 ML VIAL IV PRN ×4 (06:16→21:56)
[2017-06-04 07:03] LABS: Basophils % 0.3 % (0.0-0.8); Eosinophils % 0.2 % (0.00-10.9); Hematocrit 45.9 VOL% (42.0-52.0); Hemoglobin 15.7 GM/DL (14.0-18.0); Immature Granulocytes % 0.4 %; Immature Granulocytes Absolute 0.05 #; Lymphocytes # 1.8 10*3/uL (1.4-4.0); Mean Corpuscular HGB Conc 34.2 GM/DL (32-36); Mean Corpuscular Hemoglobin 28 PG (27-34); Mean Corpuscular Volume 82.9 FL (87-102); Mean Platelet Volume 9.9 FL (9.6-12.0); Monocytes # 0.8 10*3/uL (0.11-0.8); Monocytes % 6.3 % (1.7-12.7); Neutrophils # 9.9 10*3/uL (1.4-7.4); Neutrophils % 78.8 % (38.7-73.9); Platelet Count 246 T/CUMM (130-400); Red Blood Count 5.54 MC/CUMM (3.8-5.5); Red Cell Distribution Width 13.3 % (9.3-17.3); White Blood Count 12.6 T/CUMM (4-12)
[2017-06-04 07:32] LABS: Calcium 8.6 MG/DL (8.5-10.1); Osmolality,Calculated 276.5 MOS/KG (273-304); Potassium 3.4 MMOL/L (3.5-5.1); Risk Ratio 3.55; VLDL CHOLESTEROL 11.4 MG/DL
[2017-06-04] MEDS: amLODIPine 10 MG TABLET PO SCH (09:41)
[2017-06-04] MEDS: LISINOPRIL 20 MG TABLET PO SCH (09:41)
[2017-06-04] MEDS: PANTOPRAZOLE 40 MG TABLET PO SCH (09:42)
--- NOTE | 2017-06-04 11:12 | Hospitalist Progress Note ---
Assessment and Plan (1) Uncontrolled hypertension Status: Chronic Assessment and plan: 1)pancreatitis- likely due to alcohol based on history and lab, CT and US findings of normal liver function and normal appearing gallbladder. Lipase normal today. Begin clear liquids and advance as tolerated. 2)HTN- BP very high, not sure he has been taking his meds from discharge in March when he was admitted with HTN urgency. Resume meds, monitor. 3)hypokalemia- replace with oral KCL. 4)CONNOR- improved overnight with IVF to creatinine of 1.2 now. 5)drug abuse/alcohol abuse- UDS positive for marijuana, reports significant alcohol intake. Ativan prn. Current Visit: No (2) Hypokalemia Status: Resolved Current Visit: No (3) Acute pancreatitis Status: Acute Current Visit: Yes Hospitalist: Subjective Interval history: Mr Majano is feeling better this morning with much less pain. He is thirsty. He denies history of pancreatitis and says his pain started after eating at [employer]. He also says he is not a heavy drinker, but admits to wine and Sofiya frequently. He is not nauseated today. He would like to drink something. Exam - Constitutional Vitals: Period Temp Pulse Resp BP Sys/Archibald Pulse Ox Last 24 Hr 98.4 F-99.2 F 77-104 16-20 155-270/81-155 96-99 General appearance: normal weight, no acute distress - Eye Eye exam: Present: EOMI. Absent: scleral icterus - Respiratory Respiratory exam: Present: clear to auscultation bilaterally - Cardiovascular Cardiovascular exam: Present: regular rate and rhythm - GI/Abdominal GI/Abdominal exam: Present: normal bowel sounds, soft. Absent: tenderness - Extremities Exam Extremities exam: Absent: edema Results - Labs CBC & BMP: 06/04/17 06:25 06/04/17 06:25 Lab Results: I have reviewed the past 24 hour labs
[2017-06-04] MEDS: ONDANSETRON 4 MG/2 ML VIAL IV PRN ×2 (11:14→22:16)
[2017-06-04] MEDS ORDERED: POTASSIUM CHLORIDE 20 MEQ TABLET PO ONE (11:16)
[2017-06-04] MEDS ORDERED: hydrALAZINE 25 MG TABLET PO SCH (15:00)
[2017-06-04] MEDS: ACETAMINOPHEN 325 MG TABLET PO PRN (15:54)
[2017-06-04] MEDS: CARVEDILOL 12.5 MG TABLET PO SCH ×2 (15:55→21:49)
[2017-06-04] MEDS: hydrALAZINE 25 MG TABLET PO SCH (21:49)
[2017-06-05] MEDS: HYDROmorphone 2 MG/1 ML VIAL IV PRN ×4 (05:18→21:47)
[2017-06-05] MEDS: ONDANSETRON 4 MG/2 ML VIAL IV PRN ×2 (05:19→20:01)
[2017-06-05 07:17] LABS: Basophils % 0.4 % (0.0-0.8); Eosinophils # 0.1 10*3/uL (0.0-0.87); Eosinophils % 1.1 % (0.00-10.9); Hematocrit 40.9 VOL% (42.0-52.0); Immature Granulocytes % 0.2 %; Immature Granulocytes Absolute 0.02 #; Lymphocytes # 1.8 10*3/uL (1.4-4.0); Mean Corpuscular HGB Conc 34.2 GM/DL (32-36); Mean Corpuscular Hemoglobin 29 PG (27-34); Mean Corpuscular Volume 84.2 FL (87-102); Mean Platelet Volume 9.7 FL (9.6-12.0); Monocytes # 0.7 10*3/uL (0.11-0.8); Monocytes % 6.4 % (1.7-12.7); Neutrophils # 7.5 10*3/uL (1.4-7.4); Neutrophils % 73.9 % (38.7-73.9); Platelet Count 241 T/CUMM (130-400); Red Blood Count 4.86 MC/CUMM (3.8-5.5); Red Cell Distribution Width 13.5 % (9.3-17.3); White Blood Count 10.1 T/CUMM (4-12)
[2017-06-05] MEDS: SODIUM CHLORIDE 0.9% 1,000 ML IV SCH ×4 (07:18→09:51)
[2017-06-05 07:37] LABS: Calcium 8.5 MG/DL (8.5-10.1); Osmolality,Calculated 276.5 MOS/KG (273-304); Potassium 3.8 MMOL/L (3.5-5.1)
[2017-06-05] MEDS: CARVEDILOL 12.5 MG TABLET PO SCH ×2 (09:40→21:46)
[2017-06-05] MEDS: amLODIPine 10 MG TABLET PO SCH (09:41)
[2017-06-05] MEDS: hydrALAZINE 25 MG TABLET PO SCH ×3 (09:41→21:46)
[2017-06-05] MEDS: LISINOPRIL 20 MG TABLET PO SCH (09:41)
[2017-06-05] MEDS: PANTOPRAZOLE 40 MG TABLET PO SCH (09:41)
--- NOTE | 2017-06-05 10:44 | Gastrointestinal Consult Note ---
Assessment and Plan (1) Pancreatitis Status: Acute Assessment and plan: 06/05-several day history of upper quadrant abdominal pain with associated nausea and vomiting. Admitted with CT findings noted as below as well as elevated lipase level. Lipase trended down to 440. History of heavy alcohol use over the last several years. Negative gallbladder ultrasound. Continue with current treatment plan, IV fluids, pain meds as necessary and clear liquid diet. Plan an addendum to followed by Dr. Garza. Current Visit: Yes History of Present Illness Chief complaint: Pancreatitis History of present illness: Mr. Majano is a 32 year old male who was admitted to the hospital on 06/03 with a 4 day history of abdominal pain with associated nausea vomiting. Patient has a prior history of hypertension and was discharged from our facility fairly recently with hypertensive crisis. Patient states that he was in his usual state of health until last when he went to eat [employer]. He states later that night, he had an onset of upper abdominal pain that radiated across his abdomen into his back as well as associated nausea and vomiting. Patient states that he had multiple episodes of nausea vomiting, denying any coffee-ground emesis or hematemesis. He states that the abdominal pain continued off and on over the next several days as well as episodes of nausea and vomiting until he presented to the emergency room 2 days ago for further evaluation. Upon admission, patient had a CT of the abdomen with IV contrast which showed a small amount of adjacent fluid to at the tail of the pancreas with fat stranding stranding without pancreatic ductal dilation. He also had a gallbladder ultrasound with no acute findings and a normal common bile duct at 2 mm. He was noted on admission to have a lipase of 1679 with normal LFTs and without leukocytosis. He was also afebrile. Patient states that he does have a history of heavy alcohol use over the last 2-3 years. He states that he drinks every other day however he states that a pint of liquor will last him a week at a time. He also smokes a pack of cigarettes a day and also smokes marijuana daily. He denies any other illicit drug use. He denies any recent weight loss, fever or chills. He has had no associated diarrhea with his symptoms. Home Medications Medication Instructions Recorded Confirmed Type Lisinopril 20 mg PO DAILY #30 tablet 04/12/17 06/03/17 Rx amLODIPine [Norvasc] 10 mg PO DAILY #30 tablet 04/12/17 06/03/17 Rx Allergies Allergy/AdvReac Type Severity Reaction Status Date / Time No Known Allergies Allergy Verified 04/10/17 09:00 Medical,Surgical,& Family Hx - Medical History Cardio: History of: Hypertension Gastrointestinal: History of: GERD - Family History Family History: Reports;: Family Cancer, Family Diabetes, Family Heart Disease, Family Hypertension, Family Stroke Denies;: Family Anesthesia Reaction, Family Hematology, Family Psychiatric Problems, Additional Family History - Social History Smoking Status: Current every day smoker Frequency of Alcohol Use: Frequently Type of Drug Use: None, Marijuana 12 point system: reviewed and no additional remarkable complaints except as stated - Constitutional Constitutional: Present: as per HPI - EENT Eyes: Present: as per HPI Ears: Present: as per HPI Nose, mouth and throat: Present: as per HPI - Cardiovascular Cardiovascular: Present: as per HPI - Respiratory Respiratory: Present: as per HPI - Gastrointestinal Gastrointestinal: Present: as per HPI, abdominal pain, nausea, vomiting - Genitourinary Genitourinary: Present: as per HPI - Musculoskeletal Musculoskeletal: Present: as per HPI - Neurological Neurological: Present: as per HPI - Psychiatric Psychiatric: Present: as per HPI - Endocrine Endocrine: Present: as per HPI - Hematologic/Lymphatic Hematologic/Lymphatic: Present: as per HPI Exam - Constitutional Vitals: Period Temp Pulse Resp BP Sys/Archibald Pulse Ox Last 24 Hr 98.7 F-100.2 F 71-104 17-20 140-192/73-125 95-99 General appearance: normal weight, no acute distress - Head Head exam: Present: normal inspection, normocephalic - Eye Eye exam: Present: other (Lids and conjunctive are unremarkable). Absent: scleral icterus - ENT ENT exam: Present: normal exam, normal oropharynx - Neck Neck exam: Present: normal inspection - Respiratory Respiratory exam: Present: clear to auscultation bilaterally. Absent: rales, rhonchi, wheezes - Cardiovascular Cardiovascular exam: Present: regular rate and rhythm. Absent: diastolic murmur , JVD, systolic murmur - GI/Abdominal GI/Abdominal exam: Present: normal bowel sounds, soft. Absent: ascites, distended, mass, organomegaly, tenderness - Extremities Exam Extremities exam: Present: normal inspection, full ROM - Back Exam Back exam: Present: normal inspection - Neurological Exam Neurological exam: Present: alert, oriented X3 - Psychiatric Psychiatric exam: Present: normal affect, normal mood - Skin Skin exam: Present: normal color, warm, dry Results - Labs CBC & BMP: 06/05/17 06:41 06/05/17 06:41 Lab Results: I have reviewed the past 24 hour labs - Diagnostic Findings Procedure: CT Abdomen and Pelvis: report reviewed by me, Ultrasound: report reviewed by me Specialty Discharge - Follow Up or Referrals
--- NOTE | 2017-06-05 11:01 | Hospitalist Progress Note ---
Assessment and Plan (1) Uncontrolled hypertension Status: Chronic Assessment and plan: 1)pancreatitis- likely due to alcohol based on history and lab, CT and US findings of normal liver function and normal appearing gallbladder. Lipase normal today. tolerating clears. Dr Garza to see. Patient is improving but has never seen GI or had pancreatitis before. counselled to stop alcohol and marijuana. 2)HTN- BP is under better control but not a goal this morning. Add HCTZ/triam. 3)hypokalemia- resolved. 4)CONNOR- improved overnight with IVF to creatinine of 1.1 now. Decrease IVF to 100 /hr. 5)drug abuse/alcohol abuse- UDS positive for marijuana, reports significant alcohol intake. Ativan prn. No sign of withdrawal. Patient counselled to stop alcohol and illicit drug use. 6)discharge when tolerating regular diet and GI has seen and has no further plans and BP under adequate control. Current Visit: No (2) Acute pancreatitis Status: Acute Current Visit: Yes Hospitalist: Subjective Interval history: Mr Majano feels better today and wants to go home. He is tolerating clear liquids. He has used pain meds 2 times since yesterday evening. No nausea or vomiting. Exam - Constitutional Vitals: Period Temp Pulse Resp BP Sys/Archibald Pulse Ox Last 24 Hr 98.7 F-100.2 F 71-104 17-20 140-192/73-125 95-99 General appearance: normal weight, no acute distress - Eye Eye exam: Present: EOMI. Absent: scleral icterus - Respiratory Respiratory exam: Present: clear to auscultation bilaterally - Cardiovascular Cardiovascular exam: Present: regular rate and rhythm - GI/Abdominal GI/Abdominal exam: Present: normal bowel sounds, tenderness (epigastrium, no masses, rebound or guarding), soft - Extremities Exam Extremities exam: Absent: edema Results - Labs CBC & BMP: 06/05/17 06:41 06/05/17 06:41 Lab Results: I have reviewed the past 24 hour labs Specialty Discharge - Follow Up or Referrals
[2017-06-05] MEDS: TRIAMTERENE/HCTZ 37.5-25 MG CAPSULE PO SCH (12:34)
--- NOTE | 2017-06-05 17:31 | ECHO Report ---
Pancho Majano Exam Date: 06/05/2017 14:56 Referring Physician: Technologist: divya Ivory ARDMS, RVT Age: 32 Ht (in): 70 Wt (lb): 198 Gender: M Exam Location: [facility] Echo Indications: Essential (primary) hypertension, Hypokalemia, Acute pancreatitis, pericardial effusion BP: 144 / 91 HR: 71 Rhythm: Sinus Technical Quality: average IMPRESSIONS Left ventricular ejection fraction is estimated at 65 %. Diastolic parameters are most consistent with grade 3 diastolic dysfunction or restrictive physiology. Tricuspid regurgitation velocities suggest a RVSP of 27 mmHg plus the right atrial pressure. Moderate pericardial effusion with no evidence of impending tamponade. MEASUREMENTS (Male / Female) Normal Values 2D ECHO LV Diastolic Diameter PLAX 3.9 cm 4.2 - 5.9 / 3.9 - 5.3 cm LV Systolic Diameter PLAX 1.8 cm LV Fractional Shortening PLAX 53.0 % IVS Diastolic Thickness 2.0 cm 0.6 - 1.0 / 0.6 - 0.9 cm LVPW Diastolic Thickness 2.0 cm 0.6 - 1.0 / 0.6 - 0.9 cm RV Internal Dim ED PLAX 2.7 cm Aortic Root Diameter 2.9 cm LA Systolic Diameter LX 4.0 cm 3.0 - 4.0 / 2.7 - 3.8 cm DOPPLER Mitral E to A Ratio 0.8 TR Peak Velocity 262.0 cm/s TR Peak Gradient 27.5 mmHg FINDINGS Left Ventricle Normal left ventricular cavity size. Severe left ventricular hypertrophy. Left ventricular ejection fraction is estimated at 65 %. There is no regional wall motion abnormality. Diastolic parameters are most consistent with grade 3 diastolic dysfunction or restrictive physiology. Right Ventricle Mildly increased right ventricular size. Right Atrium The right atrium is mildly enlarged. Left Atrium The left atrium is mildly enlarged. Mitral Valve Mitral valve sclerosis. Trace mitral valve regurgitation. Aortic Valve Aortic valve sclerosis without stenosis or regurgitation. Tricuspid Valve Morphologically normal tricuspid valve. Mild tricuspid valve regurgitation. Tricuspid regurgitation velocities suggest a RVSP of 27 mmHg plus the right atrial pressure. Pulmonic Valve Morphologically normal pulmonic valve without significant stenosis. There is no pulmonic regurgitation. Pericardium Moderate pericardial effusion. Aorta Normal ascending aorta dimension. Enedelia Holm (Electronically Signed) Final Date: 05 June 2017 17:23
[2017-06-05] MEDS: ACETAMINOPHEN 325 MG TABLET PO PRN (17:40)
[2017-06-06 03:58] LABS: Basophils % 0.5 % (0.0-0.8); Eosinophils # 0.2 10*3/uL (0.0-0.87); Eosinophils % 1.9 % (0.00-10.9); Hematocrit 41.4 VOL% (42.0-52.0); Immature Granulocytes % 0.1 %; Immature Granulocytes Absolute 0.01 #; Lymphocytes # 2.3 10*3/uL (1.4-4.0); Lymphocytes % 26.6 % (21.2-54.2); Mean Corpuscular HGB Conc 33.8 GM/DL (32-36); Mean Corpuscular Hemoglobin 28 PG (27-34); Mean Corpuscular Volume 83.8 FL (87-102); Mean Platelet Volume 9.8 FL (9.6-12.0); Monocytes # 0.6 10*3/uL (0.11-0.8); Monocytes % 7.4 % (1.7-12.7); Neutrophils # 5.4 10*3/uL (1.4-7.4); Neutrophils % 63.5 % (38.7-73.9); Platelet Count 259 T/CUMM (130-400); Red Blood Count 4.94 MC/CUMM (3.8-5.5); Red Cell Distribution Width 13.3 % (9.3-17.3); White Blood Count 8.6 T/CUMM (4-12)
[2017-06-06 04:28] LABS: Calcium 8.9 MG/DL (8.5-10.1); Potassium 3.5 MMOL/L (3.5-5.1)
[2017-06-06] MEDS: HYDROmorphone 2 MG/1 ML VIAL IV PRN (04:44)
[2017-06-06] MEDS: ONDANSETRON 4 MG/2 ML VIAL IV PRN (04:46)
[2017-06-06 07:41] VITALS: BP 144/92
[2017-06-06] MEDS: LISINOPRIL 20 MG TABLET PO SCH (08:56)
[2017-06-06] MEDS: amLODIPine 10 MG TABLET PO SCH (08:56)
[2017-06-06] MEDS: hydrALAZINE 25 MG TABLET PO SCH (08:56)
[2017-06-06] MEDS: PANTOPRAZOLE 40 MG TABLET PO SCH (08:56)
[2017-06-06] MEDS: CARVEDILOL 12.5 MG TABLET PO SCH (08:56)
[2017-06-06] MEDS: TRIAMTERENE/HCTZ 37.5-25 MG CAPSULE PO SCH (08:56)
--- NOTE | 2017-06-06 09:46 | Gastrointestinal Progress Note ---
Assessment and Plan (1) Pancreatitis Status: Acute Assessment and plan: 06/06-no further complaints of abdominal pain, nausea vomiting. Tolerating regular diet well. Lipase levels have trended downward. Okay to discharge from GI standpoint with patient tolerates diet and stable. No follow-up required at present time. Plan an addendum will follow Dr. Garza 06/05-several day history of upper quadrant abdominal pain with associated nausea and vomiting. Admitted with CT findings noted as below as well as elevated lipase level. Lipase trended down to 440. History of heavy alcohol use over the last several years. Negative gallbladder ultrasound. Continue with current treatment plan, IV fluids, pain meds as necessary and clear liquid diet. Plan an addendum to followed by Dr. Garza. Current Visit: Yes Gastroenterology - PN: Subj Interval history: CC: Pancreatitis Patient is seen awake alert sitting up in bed. States he had a restful night. He denies any abdominal pain, nausea or vomiting. His lipase levels have trended down now at 312. He had a regular diet started this morning and he is tolerated this well. He denies any pain with eating. Abdomen is soft, nontender. ROS: Denies shortness breath or chest pain Exam (Progress Note) - Constitutional Vitals: Period Temp Pulse Resp BP Sys/Archibald Pulse Ox Last 24 Hr 98.3 F-100.7 F 69-87 17-20 130-158/85-110 93-98 - Other Additional findings: General appearance: normal weight, no acute distress - Head Head exam: Present: normal inspection, normocephalic - Eye Eye exam: Present: other (Lids and conjunctive are unremarkable). Absent: scleral icterus - ENT ENT exam: Present: normal exam, normal oropharynx - Neck Neck exam: Present: normal inspection - Respiratory Respiratory exam: Present: clear to auscultation bilaterally. Absent: rales, rhonchi, wheezes - Cardiovascular Cardiovascular exam: Present: regular rate and rhythm. Absent: diastolic murmur , JVD, systolic murmur - GI/Abdominal GI/Abdominal exam: Present: normal bowel sounds, soft. Absent: ascites, distended, mass, organomegaly, tenderness - Extremities Exam Extremities exam: Present: normal inspection, full ROM - Back Exam Back exam: Present: normal inspection - Neurological Exam Neurological exam: Present: alert, oriented X3 - Psychiatric Psychiatric exam: Present: normal affect, normal mood - Skin Skin exam: Present: normal color, warm, dry Results - Labs CBC & BMP: 06/06/17 03:09 06/06/17 03:09 Lab Results: I have reviewed the past 24 hour labs Specialty Discharge - Follow Up or Referrals
--- NOTE | 2017-06-06 09:55 | Discharge Summary ---
Hospital Course - Hospital Course Hospital Course: 32-year-old -Citizen Of [place] male with history of hypertension admitted by the hospitalist service through the emergency room on 06/03/2017 with acute alcoholic pancreatitis and uncontrolled hypertension. Dr. Garza from gastroenterology was consulted to follow. Patient was kept n.p.o. with IV fluids and analgesics. His lipase is now normalized and he is tolerating a regular diet with no nausea or vomiting or abdominal pain. He has been restarted on his home meds of Norvasc and lisinopril and hydralazine and Dyazide have been added. Patient will need to follow-up at [facility] with a blood pressure log in the next week. Patient was also instructed by multiple physicians and by me for greater than 15 minutes total to stop drinking alcohol and smoking cessation. Patient agrees that he needs to do this but he is not eager to try. Care coordination, chart review, completed discharge paperwork took approximately 37 minutes. - Time spent with patient Time with patient DS: Greater than 30 minutes Specialty Discharge - Follow Up or Referrals Discharge Plan - Discharge Data Disposition: Disch To Home/Self Care Condition at Discharge: Stable Discharge Diet: advance to your usual diet Activity: resume usual activities as tolerated Contact your physician if you experience:: Nausea/Vomiting, pain uncontrolled by pain medications - Discharge Medications New Carvedilol [Coreg] 12.5 mg PO BID #60 tablet hydrALAZINE TAB [Apresoline Tab] 50 mg PO TID #90 tablet Triamterene/Hctz 37.5-25 Cap [Dyazide] 1 capsule PO DAILY #30 capsule Continue amLODIPine [Norvasc] 10 mg PO DAILY #30 tablet Lisinopril 20 mg PO DAILY #30 tablet - Follow Up or Referral Follow Up: [facility] [Provider Group] - 1 Week (Keep blood pressure log ) - Forms/Instructions Instructions: Pancreatitis (DC) Exam - Constitutional Vitals: Period Temp Pulse Resp BP Sys/Archibald Pulse Ox Last 24 Hr 98.3 F-100.7 F 69-87 17-20 130-158/85-110 93-98 Exam: 32-year-old -Citizen Of [place] male, no acute distress, alert and oriented Chest clear CV regular rate and rhythm Abdomen soft and nontender Extremities no edema Discharge Results Labs on day of discharge: Labs from last 24 hours 06/06/17 06/06/1706/06/17 03:09 03:09 03:09 WBC 8.6 RBC 4.94 Hgb 14.0 Hct 41.4 L MCV 83.8 L MCH 28 MCHC 33.8 RDW 13.3 Plt Count 259 MPV 9.8 Neut % (Auto) 63.5 Lymph % (Auto) 26.6 Moody % (Auto) 7.4 Eos % (Auto) 1.9 Baso % (Auto) 0.5 Neut # (Auto) 5.4 Lymph # (Auto) 2.3 Moody # (Auto) 0.6 Eos # (Auto) 0.2 Baso # (Auto) 0.0 Immature Gran % 0.1 Nucleated RBC % 0.0 Immature Gran # 0.01 Nucleated RBCs # 0.00 Immature Plt Fraction 0.0 Sodium 136 Potassium 3.5 Chloride 101 Carbon Dioxide 28 Anion Gap 10.5 BUN 12 Creatinine 1.10 GFR Calculation 124 BUN/Creatinine Ratio 10.00 Glucose 92 Calculated Osmolality 271.0 L Calcium 8.9 Lipase 312.0 D DS: Provider Date of admission: 06/03/17 15:07 Primary care physician: . No PCP Attending physician on admission: Vamsi Martinez Consults: 06/03/17 16:52 Consult to Pastoral Services [CONS] Routine Comment: Pastoral Screen: Request Statistical Engineer Visit Pastoral Screen Source of Request: Family 06/05/17 07:57 Consult to Physician [CONS] Routine Comment: new pancreatitis Consulting Provider: Cosmo Garza Consulting Provider Notified: Yes When should Consulting Provider be notified: Now Consult to Specialist Group: Gastroenterology When should Consulting Provider be notified: Now Person Notified: jayleen kim Date Notified: 06/05/17 Time Notified: 10:27 Consult Notification Comment: message left at office at 8:30 info given. Discharging clinician: TACOS Jackson Expected date of discharge: 06/06/17
== END 2017-06-06 11:37 | disposition home or self-care (01) | DRG 439 ==
LOC: N.ED 12:36 → N.EDINP 15:07 → SUATTDRO 15:07 → N.EDINP 16:05 → N.3E 16:34
PROVIDERS: ATTEND Internal Medicine

== ENCOUNTER 2018-03-18 21:49 | Inpatient (IN) ==
[2018-03-18] MEDS ORDERED: PANTOPRAZOLE 40 MG VIAL IV STA (22:46)
[2018-03-18] MEDS ORDERED: hydrALAZINE 20 MG/1 ML VIAL IV STA (22:46)
[2018-03-18] MEDS ORDERED: ONDANSETRON 4 MG/2 ML VIAL IV STA (22:46)
[2018-03-18 23:28] LABS: Basophils % 0.3 % (0.0-0.8); Eosinophils % 0.2 % (0.00-10.9); Hematocrit 37.3 VOL% (42.0-52.0); Hemoglobin 12.4 GM/DL (14.0-18.0); Immature Granulocytes % 0.7 %; Immature Granulocytes Absolute 0.08 #; Lymphocytes # 2.3 10*3/uL (1.4-4.0); Lymphocytes % 20.9 % (21.2-54.2); Mean Corpuscular HGB Conc 33.2 GM/DL (32-36); Mean Corpuscular Hemoglobin 28 PG (27-34); Mean Platelet Volume 9.3 FL (9.6-12.0); Monocytes # 0.5 10*3/uL (0.11-0.8); Monocytes % 4.6 % (1.7-12.7); Neutrophils % 73.3 % (38.7-73.9); Platelet Count 183 T/CUMM (130-400); Red Blood Count 4.39 MC/CUMM (3.8-5.5); Red Cell Distribution Width 13.6 % (9.3-17.3)
[2018-03-18 23:37] LABS: PT Patient Result 10.5 SECS
[2018-03-18 23:55] LABS: Albumin 3.7 G/DL (3.4-5.0); Bilirubin,Total 0.6 MG/DL (0.2-1.0); Calcium 8.5 MG/DL (8.5-10.1); Osmolality,Calculated 283.3 MOS/KG (273-304); Potassium 3.1 MMOL/L (3.5-5.1); Total Protein 6.9 G/DL (6.4-8.3)
[2018-03-18 23:59] LABS: Troponin I Only 0.061 NG/ML (0.00-0.045)
[2018-03-19] MEDS ORDERED: POTASSIUM CHLORIDE 20 MEQ TABLET PO STA (00:16)
[2018-03-19] MEDS ORDERED: FUROSEMIDE 40 MG/4 ML VIAL IV STA (00:22)
[2018-03-19] MEDS ORDERED: CLINDAMYCIN INJ 900 MG in PREMIX 1 EACH IV STA (00:33)
[2018-03-19] MEDS ORDERED: methylPREDNISolone SOD SUC 125 MG/2 ML VIAL IV STA (00:34)
[2018-03-19] MEDS ORDERED: ALBUTEROL/IPRATROPIUM 3 ML NEB RESP TX STA (00:34)
[2018-03-19] MEDS: niCARdipine INJ 25 MG in SODIUM CHLORIDE 0.9% 240 ML IV PRN ×2 (00:49→13:32)
[2018-03-19] MEDS ORDERED: MORPHINE 4 MG/1 ML VIAL ONE (01:24)
[2018-03-19] MEDS ORDERED: ONDANSETRON 4 MG/2 ML VIAL IV STA (01:36)
[2018-03-19] MEDS ORDERED: MORPHINE 4 MG/1 ML VIAL IV STA (01:37)
[2018-03-19] MEDS ORDERED: ALBUTEROL 2.5 MG/3 ML NEB RESP TX PRN (02:23)
[2018-03-19] MEDS ORDERED: ALBUTEROL/IPRATROPIUM 3 ML NEB RESP TX PRN (02:23)
[2018-03-19] MEDS ORDERED: ACETAMINOPHEN 325 MG TABLET PO PRN (02:23)
[2018-03-19 02:49] LABS: Barbiturates Screen,Urine Negative (Negative); Benzodiazepines Screen,Urine Negative (Negative); Cannabinoid Screen,Urine Positive (Negative); Opiate Screen,Urine Negative (Negative); Phencyclidine Screen,Urine Negative (Negative)
[2018-03-19] MEDS: LEVOFLOXACIN INJ 750 MG in PREMIX 1 EACH IV SCH (03:55)
[2018-03-19 06:50] LABS: Basophils % 0.1 % (0.0-0.8); Eosinophils % 0.1 % (0.00-10.9); Hematocrit 40.8 VOL% (42.0-52.0); Hemoglobin 13.8 GM/DL (14.0-18.0); Immature Granulocytes % 0.5 %; Immature Granulocytes Absolute 0.05 #; Lymphocytes # 0.9 10*3/uL (1.4-4.0); Lymphocytes % 9.7 % (21.2-54.2); Mean Corpuscular HGB Conc 33.8 GM/DL (32-36); Mean Corpuscular Hemoglobin 28 PG (27-34); Mean Corpuscular Volume 82.9 FL (87-102); Mean Platelet Volume 9.8 FL (9.6-12.0); Monocytes # 0.1 10*3/uL (0.11-0.8); Monocytes % 0.9 % (1.7-12.7); Neutrophils # 8.6 10*3/uL (1.4-7.4); Neutrophils % 88.7 % (38.7-73.9); Platelet Count 228 T/CUMM (130-400); Red Blood Count 4.92 MC/CUMM (3.8-5.5); Red Cell Distribution Width 13.6 % (9.3-17.3); White Blood Count 9.7 T/CUMM (4-12)
[2018-03-19 06:56] LABS: Albumin 3.8 G/DL (3.4-5.0); Bilirubin,Total 0.9 MG/DL (0.2-1.0); Calcium 9.1 MG/DL (8.5-10.1); Osmolality,Calculated 285.3 MOS/KG (273-304); Potassium 3.8 MMOL/L (3.5-5.1); Total Protein 7.9 G/DL (6.4-8.3)
[2018-03-19 07:02] LABS: Troponin I Only 0.18 NG/ML (0.00-0.045)
[2018-03-19] MEDS: LISINOPRIL 20 MG TABLET PO SCH (09:40)
[2018-03-19] MEDS: CARVEDILOL 12.5 MG TABLET PO SCH ×2 (09:41→20:01)
[2018-03-19] MEDS: TRIAMTERENE/HCTZ 37.5-25 MG CAPSULE PO SCH (09:42)
[2018-03-19] MEDS: PANTOPRAZOLE 40 MG TABLET PO SCH (09:42)
[2018-03-19] MEDS ORDERED: niCARdipine 25 MG/10 ML VIAL IV ONE (13:23)
[2018-03-19 17:50] LABS: PT Patient Result 10.4 SECS
[2018-03-20] MEDS: LEVOFLOXACIN INJ 750 MG in PREMIX 1 EACH IV SCH (04:36)
[2018-03-20 04:57] LABS: Basophils % 0.1 % (0.0-0.8); Eosinophils % 0.1 % (0.00-10.9); Hematocrit 36.9 VOL% (42.0-52.0); Hemoglobin 12.4 GM/DL (14.0-18.0); Immature Granulocytes % 0.4 %; Immature Granulocytes Absolute 0.08 #; Lymphocytes # 2.8 10*3/uL (1.4-4.0); Lymphocytes % 14.9 % (21.2-54.2); Mean Corpuscular HGB Conc 33.6 GM/DL (32-36); Mean Corpuscular Hemoglobin 29 PG (27-34); Mean Corpuscular Volume 85.2 FL (87-102); Mean Platelet Volume 10.1 FL (9.6-12.0); Monocytes # 0.9 10*3/uL (0.11-0.8); Monocytes % 4.9 % (1.7-12.7); Neutrophils # 14.9 10*3/uL (1.4-7.4); Neutrophils % 79.6 % (38.7-73.9); Platelet Count 221 T/CUMM (130-400); Red Blood Count 4.33 MC/CUMM (3.8-5.5); Red Cell Distribution Width 13.7 % (9.3-17.3); White Blood Count 18.7 T/CUMM (4-12)
[2018-03-20 05:23] LABS: Calcium 8.9 MG/DL (8.5-10.1); Osmolality,Calculated 282.5 MOS/KG (273-304); Potassium 3.6 MMOL/L (3.5-5.1)
[2018-03-20] MEDS ORDERED: NICOTINE 21 MG/24 HR PATCH TRANSDERM PRN (06:27)
[2018-03-20] MEDS: PANTOPRAZOLE 40 MG TABLET PO SCH (09:34)
[2018-03-20] MEDS: CARVEDILOL 12.5 MG TABLET PO SCH ×2 (09:34→20:34)
[2018-03-20] MEDS: LISINOPRIL 20 MG TABLET PO SCH (09:34)
[2018-03-20] MEDS: TRIAMTERENE/HCTZ 37.5-25 MG CAPSULE PO SCH (09:41)
[2018-03-20] MEDS: niCARdipine INJ 25 MG in SODIUM CHLORIDE 0.9% 240 ML IV PRN ×2 (10:16→19:32)
[2018-03-20] MEDS: amLODIPine 5 MG TABLET PO SCH (10:50)
[2018-03-20] MEDS: hydroCHLOROthiazide 12.5 MG CAPSULE PO SCH (10:50)
[2018-03-21] MEDS: LEVOFLOXACIN INJ 750 MG in PREMIX 1 EACH IV SCH (03:00)
[2018-03-21 04:42] LABS: Basophils % 0.3 % (0.0-0.8); Eosinophils % 0.4 % (0.00-10.9); Hematocrit 42.3 VOL% (42.0-52.0); Hemoglobin 14.2 GM/DL (14.0-18.0); Immature Granulocytes % 0.4 %; Immature Granulocytes Absolute 0.04 #; Lymphocytes # 3.7 10*3/uL (1.4-4.0); Lymphocytes % 33.1 % (21.2-54.2); Mean Corpuscular HGB Conc 33.6 GM/DL (32-36); Mean Corpuscular Hemoglobin 29 PG (27-34); Mean Corpuscular Volume 85.5 FL (87-102); Mean Platelet Volume 9.8 FL (9.6-12.0); Monocytes # 0.5 10*3/uL (0.11-0.8); Monocytes % 4.6 % (1.7-12.7); Neutrophils # 6.9 10*3/uL (1.4-7.4); Neutrophils % 61.2 % (38.7-73.9); Platelet Count 244 T/CUMM (130-400); Red Blood Count 4.95 MC/CUMM (3.8-5.5); White Blood Count 11.2 T/CUMM (4-12)
[2018-03-21 05:02] LABS: Calcium 9.3 MG/DL (8.5-10.1); Osmolality,Calculated 282.5 MOS/KG (273-304); Potassium 3.3 MMOL/L (3.5-5.1)
[2018-03-21] MEDS ORDERED: PROMETHAZINE 25 MG/1 ML VIAL IM ONE (07:30)
[2018-03-21] MEDS ORDERED: VANCOMYCIN INJ 1,000 MG in SODIUM CHLORIDE 0.9% 250 ML IV SCH (08:00)
[2018-03-21] MEDS ORDERED: LIDOCAINE 1% 20 ML VIAL MISC INJ ONE (08:00)
[2018-03-21] MEDS ORDERED: MIDAZOLAM 2 MG/2 ML VIAL IV ONE (08:00)
[2018-03-21] MEDS ORDERED: MIDAZOLAM 2 MG/2 ML VIAL ONE ×2 (08:40→09:19)
[2018-03-21] MEDS: VANCOMYCIN INJ 1,000 MG in SODIUM CHLORIDE 0.9% 250 ML IV SCH ×2 (10:19→20:02)
[2018-03-21] MEDS: PANTOPRAZOLE 40 MG TABLET PO SCH (12:26)
[2018-03-21] MEDS: amLODIPine 5 MG TABLET PO SCH (12:26)
[2018-03-21] MEDS: CARVEDILOL 12.5 MG TABLET PO SCH ×2 (12:26→20:02)
[2018-03-21] MEDS: LISINOPRIL 20 MG TABLET PO SCH (12:27)
[2018-03-21] MEDS: SPIRONOLACTONE 25 MG TABLET PO SCH (12:28)
[2018-03-21] MEDS: hydroCHLOROthiazide 12.5 MG CAPSULE PO SCH (12:36)
[2018-03-21] MEDS ORDERED: cloNIDine 0.1 MG TABLET PO PRN (14:34)
[2018-03-21] MEDS ORDERED: TUBERCULIN SKIN TEST 0.1 ML SYRINGE INTRADERM ONE (14:38)
[2018-03-22] MEDS: LEVOFLOXACIN INJ 750 MG in PREMIX 1 EACH IV SCH (03:42)
[2018-03-22 06:02] LABS: Basophils % 0.3 % (0.0-0.8); Eosinophils # 0.1 10*3/uL (0.0-0.87); Eosinophils % 0.5 % (0.00-10.9); Hemoglobin 13.3 GM/DL (14.0-18.0); Immature Granulocytes % 0.3 %; Immature Granulocytes Absolute 0.03 #; Lymphocytes % 31.2 % (21.2-54.2); Mean Corpuscular HGB Conc 33.3 GM/DL (32-36); Mean Corpuscular Hemoglobin 28 PG (27-34); Mean Corpuscular Volume 85.1 FL (87-102); Mean Platelet Volume 9.8 FL (9.6-12.0); Monocytes # 0.5 10*3/uL (0.11-0.8); Neutrophils % 62.7 % (38.7-73.9); Platelet Count 246 T/CUMM (130-400); Red Cell Distribution Width 13.7 % (9.3-17.3); White Blood Count 9.6 T/CUMM (4-12)
[2018-03-22 06:14] LABS: Calcium 8.3 MG/DL (8.5-10.1); Osmolality,Calculated 279.8 MOS/KG (273-304); Potassium 3.6 MMOL/L (3.5-5.1)
[2018-03-22] MEDS: LINEZOLID INJ 600 MG in PREMIX 1 EACH IV SCH ×2 (08:30→19:50)
[2018-03-22] MEDS: SPIRONOLACTONE 25 MG TABLET PO SCH ×2 (08:30→13:56)
[2018-03-22] MEDS: PANTOPRAZOLE 40 MG TABLET PO SCH (08:31)
[2018-03-22] MEDS: amLODIPine 5 MG TABLET PO SCH (08:31)
[2018-03-22] MEDS: LISINOPRIL 20 MG TABLET PO SCH (08:31)
[2018-03-22] MEDS: CARVEDILOL 12.5 MG TABLET PO SCH ×2 (08:31→21:08)
[2018-03-22] MEDS: POTASSIUM CHLORIDE 20 MEQ TABLET PO PRN ×2 (09:00→12:04)
[2018-03-22] MEDS ORDERED: FUROSEMIDE 40 MG/4 ML VIAL IV ONE (13:55)
[2018-03-22] MEDS: amLODIPine 10 MG TABLET PO SCH (13:56)
[2018-03-23] MEDS: LEVOFLOXACIN INJ 750 MG in PREMIX 1 EACH IV SCH (04:12)
[2018-03-23 07:11] LABS: Calcium 8.4 MG/DL (8.5-10.1); Osmolality,Calculated 279.7 MOS/KG (273-304); Potassium 3.7 MMOL/L (3.5-5.1)
[2018-03-23] MEDS: LINEZOLID INJ 600 MG in PREMIX 1 EACH IV SCH ×2 (07:39→20:38)
[2018-03-23] MEDS: CARVEDILOL 12.5 MG TABLET PO SCH ×2 (08:50→20:12)
[2018-03-23] MEDS: amLODIPine 10 MG TABLET PO SCH (08:50)
[2018-03-23] MEDS: SPIRONOLACTONE 25 MG TABLET PO SCH (08:50)
[2018-03-23] MEDS: LISINOPRIL 20 MG TABLET PO SCH (08:51)
[2018-03-23] MEDS: POTASSIUM CHLORIDE 20 MEQ TABLET PO PRN (08:51)
[2018-03-23] MEDS: PANTOPRAZOLE 40 MG TABLET PO SCH (08:51)
[2018-03-24 02:45] LABS: Basophils % 0.2 % (0.0-0.8); Eosinophils # 0.2 10*3/uL (0.0-0.87); Eosinophils % 2.1 % (0.00-10.9); Hematocrit 35.3 VOL% (42.0-52.0); Hemoglobin 12.1 GM/DL (14.0-18.0); Immature Granulocytes % 0.4 %; Immature Granulocytes Absolute 0.03 #; Lymphocytes # 2.5 10*3/uL (1.4-4.0); Lymphocytes % 30.1 % (21.2-54.2); Mean Corpuscular HGB Conc 34.3 GM/DL (32-36); Mean Corpuscular Hemoglobin 29 PG (27-34); Mean Corpuscular Volume 83.3 FL (87-102); Mean Platelet Volume 9.6 FL (9.6-12.0); Monocytes # 0.4 10*3/uL (0.11-0.8); Monocytes % 5.2 % (1.7-12.7); Neutrophils # 5.1 10*3/uL (1.4-7.4); Platelet Count 241 T/CUMM (130-400); Red Blood Count 4.24 MC/CUMM (3.8-5.5); Red Cell Distribution Width 13.7 % (9.3-17.3); White Blood Count 8.2 T/CUMM (4-12)
[2018-03-24 03:00] LABS: Calcium 8.5 MG/DL (8.5-10.1); Osmolality,Calculated 276.8 MOS/KG (273-304); Potassium 4.1 MMOL/L (3.5-5.1)
[2018-03-24] MEDS: LEVOFLOXACIN INJ 750 MG in PREMIX 1 EACH IV SCH (03:49)
[2018-03-24] MEDS: PANTOPRAZOLE 40 MG TABLET PO SCH (08:33)
[2018-03-24] MEDS: CARVEDILOL 12.5 MG TABLET PO SCH ×2 (08:34→21:31)
[2018-03-24] MEDS: LISINOPRIL 20 MG TABLET PO SCH (08:34)
[2018-03-24] MEDS: amLODIPine 10 MG TABLET PO SCH (08:34)
[2018-03-24] MEDS: SPIRONOLACTONE 25 MG TABLET PO SCH (08:34)
[2018-03-24] MEDS: LINEZOLID INJ 600 MG in PREMIX 1 EACH IV SCH ×2 (08:35→20:00)
[2018-03-25] MEDS: LEVOFLOXACIN INJ 750 MG in PREMIX 1 EACH IV SCH (03:39)
[2018-03-25 06:42] LABS: Calcium 8.4 MG/DL (8.5-10.1); Osmolality,Calculated 274.8 MOS/KG (273-304); Potassium 4.2 MMOL/L (3.5-5.1)
[2018-03-25] MEDS: SPIRONOLACTONE 25 MG TABLET PO SCH (08:21)
[2018-03-25] MEDS: CARVEDILOL 12.5 MG TABLET PO SCH ×2 (08:22→21:13)
[2018-03-25] MEDS: LINEZOLID INJ 600 MG in PREMIX 1 EACH IV SCH ×2 (08:22→21:13)
[2018-03-25] MEDS: amLODIPine 10 MG TABLET PO SCH (08:22)
[2018-03-25] MEDS: PANTOPRAZOLE 40 MG TABLET PO SCH (08:22)
[2018-03-25] MEDS: LISINOPRIL 20 MG TABLET PO SCH (08:22)
[2018-03-25 10:52] LABS: HIV Antigen/Antibody Result Nonreactive (Nonreactive)
[2018-03-25] MEDS ORDERED: ASPIRIN EC 81 MG TABLET PO SCH (11:00)
[2018-03-25 13:36] LABS: TB2 Ag Minus Result -0.02 IU/mL
[2018-03-26] MEDS: LEVOFLOXACIN INJ 750 MG in PREMIX 1 EACH IV SCH (03:08)
[2018-03-26 07:20] VITALS: BP 164/110
[2018-03-26 07:23] LABS: Basophils % 0.4 % (0.0-0.8); Eosinophils # 0.2 10*3/uL (0.0-0.87); Hematocrit 39.1 VOL% (42.0-52.0); Hemoglobin 12.9 GM/DL (14.0-18.0); Immature Granulocytes % 0.3 %; Immature Granulocytes Absolute 0.02 #; Lymphocytes # 2.2 10*3/uL (1.4-4.0); Lymphocytes % 27.4 % (21.2-54.2); Mean Corpuscular Hemoglobin 29 PG (27-34); Mean Corpuscular Volume 86.7 FL (87-102); Mean Platelet Volume 9.5 FL (9.6-12.0); Monocytes # 0.5 10*3/uL (0.11-0.8); Monocytes % 6.1 % (1.7-12.7); Neutrophils # 5.1 10*3/uL (1.4-7.4); Neutrophils % 63.8 % (38.7-73.9); Platelet Count 299 T/CUMM (130-400); Red Blood Count 4.51 MC/CUMM (3.8-5.5); Red Cell Distribution Width 14.1 % (9.3-17.3)
[2018-03-26 07:52] LABS: Calcium 8.9 MG/DL (8.5-10.1); Osmolality,Calculated 274.8 MOS/KG (273-304); Potassium 4.3 MMOL/L (3.5-5.1)
[2018-03-26] MEDS ORDERED: hydrALAZINE 25 MG TABLET ONE (08:00)
[2018-03-26] MEDS: SPIRONOLACTONE 25 MG TABLET PO SCH (08:08)
[2018-03-26] MEDS: LISINOPRIL 20 MG TABLET PO SCH (08:08)
[2018-03-26] MEDS: CARVEDILOL 12.5 MG TABLET PO SCH (08:08)
[2018-03-26] MEDS: amLODIPine 10 MG TABLET PO SCH (08:08)
[2018-03-26] MEDS: LINEZOLID INJ 600 MG in PREMIX 1 EACH IV SCH (08:08)
[2018-03-26] MEDS: PANTOPRAZOLE 40 MG TABLET PO SCH (08:08)
[2018-03-27 14:30] LABS: Myeloperoxidase Antibody < 0.2 U
== END 2018-03-26 10:54 | disposition home or self-care (01) | DRG 194 ==
LOC: N.ED 21:49 → SUATTDRO 03-19 02:23 → N.EDINP 03-19 02:23 → N.ICU 03-19 12:49 → N.2E 03-23 15:34
PROVIDERS: ADMIT Internal Medicine; ATTEND Internal Medicine Infectious Disease

== ENCOUNTER 2018-09-30 15:51 | Inpatient (IN) ==
[2018-09-30 17:12] LABS: Basophils % 0.3 % (0.0-0.8); Eosinophils # 0.1 10*3/uL (0.0-0.87); Eosinophils % 0.9 % (0.00-10.9); Hematocrit 39.8 VOL% (42.0-52.0); Hemoglobin 13.4 GM/DL (14.0-18.0); Immature Granulocytes % 0.4 %; Immature Granulocytes Absolute 0.04 #; Lymphocytes # 2.5 10*3/uL (1.4-4.0); Lymphocytes % 23.9 % (21.2-54.2); Mean Corpuscular HGB Conc 33.7 GM/DL (32-36); Mean Corpuscular Hemoglobin 28 PG (27-34); Mean Corpuscular Volume 83.3 FL (87-102); Mean Platelet Volume 10.9 FL (9.6-12.0); Monocytes # 0.6 10*3/uL (0.11-0.8); Monocytes % 5.7 % (1.7-12.7); Neutrophils # 7.1 10*3/uL (1.4-7.4); Neutrophils % 68.8 % (38.7-73.9); Platelet Count 113 T/CUMM (130-400); Red Blood Count 4.78 MC/CUMM (3.8-5.5); Red Cell Distribution Width 14.2 % (9.3-17.3); White Blood Count 10.4 T/CUMM (4-12)
[2018-09-30 17:30] LABS: Albumin 3.3 G/DL (3.4-5.0); Bilirubin,Total 0.9 MG/DL (0.2-1.0); Calcium 9.2 MG/DL (8.5-10.1); Osmolality,Calculated 270.5 MOS/KG (273-304); Potassium 2.9 MMOL/L (3.5-5.1)
[2018-09-30] MEDS ORDERED: hydrALAZINE 20 MG/1 ML VIAL IV STA (18:49)
[2018-09-30] MEDS ORDERED: LABETALOL 20 MG/4 ML SYRINGE IV STA (19:25)
[2018-09-30] MEDS ORDERED: ALBUTEROL 2.5 MG/3 ML NEB RESP TX PRN (19:53)
[2018-09-30] MEDS ORDERED: PANTOPRAZOLE 40 MG VIAL IV SCH (20:00)
[2018-09-30] MEDS: niCARdipine INJ 25 MG in SODIUM CHLORIDE 0.9% 240 ML IV PRN (21:23)
[2018-09-30] MEDS: PIPERACILLIN/TAZOBACTAM 3,375 MG in SODIUM CHLORIDE 0.9% 100 ML IV SCH (21:23)
[2018-09-30] MEDS: ENOXAPARIN 30 MG/0.3 ML SYRINGE SUBCUT SCH (21:23)
[2018-09-30 21:25] LABS: INR 0.9; PT Patient Result 9.7 SECS
[2018-09-30 21:57] LABS: Thyroid Stimulating Hormone 0.922 uIU/ml (0.358-3.74)
[2018-09-30] MEDS: ZALEPLON 5 MG CAPSULE PO PRN (23:07)
[2018-10-01] MEDS: ACETAMINOPHEN 325 MG TABLET PO PRN (01:18)
[2018-10-01] MEDS: ZALEPLON 5 MG CAPSULE PO PRN (01:19)
[2018-10-01] MEDS: ONDANSETRON 4 MG/2 ML VIAL IV PRN ×3 (02:00→17:25)
[2018-10-01 02:42] LABS: Apearance,Urine CLEAR (Clear); Bilirubin,Urine Negative (Negative); Blood, Urine Large mg/dL (Negative); Glucose,Urine (UA) 50 mg/dL (Negative); Ketones,Urine Negative (Negative); Mucus,Urine Occasional /LPF (Occasional); Nitrite,Urine Negative (Negative); Protein,Urine >=500 MG/DL; RBC,Urine 791 /HPF (0-4); Squamous Epithelial Cell,Urine Occasional /HPF (0-10); Urine Color Yellow (Yellow); Urine Specific Gravity 1.014 (1.001-1.035); Urine Urobilinogen < 2.0 EU/DL (0.2-1.0)
[2018-10-01] MEDS: niCARdipine INJ 25 MG in SODIUM CHLORIDE 0.9% 240 ML IV PRN ×2 (02:44→08:00)
[2018-10-01] MEDS ORDERED: PROMETHAZINE INJ 25 MG in SODIUM CHLORIDE 0.9% 50 ML IV PRN (05:02)
[2018-10-01 05:09] LABS: Basophils % 0.3 % (0.0-0.8); Eosinophils # 0.1 10*3/uL (0.0-0.87); Eosinophils % 0.5 % (0.00-10.9); Hematocrit 39.3 VOL% (42.0-52.0); Hemoglobin 13.2 GM/DL (14.0-18.0); Immature Granulocytes % 0.5 %; Immature Granulocytes Absolute 0.06 #; Lymphocytes % 17.8 % (21.2-54.2); Mean Corpuscular HGB Conc 33.6 GM/DL (32-36); Mean Corpuscular Hemoglobin 28 PG (27-34); Mean Platelet Volume 11.9 FL (9.6-12.0); Monocytes # 0.6 10*3/uL (0.11-0.8); Monocytes % 4.8 % (1.7-12.7); Neutrophils # 8.7 10*3/uL (1.4-7.4); Neutrophils % 76.1 % (38.7-73.9); Platelet Count 135 T/CUMM (130-400); Red Blood Count 4.79 MC/CUMM (3.8-5.5); Red Cell Distribution Width 13.9 % (9.3-17.3); White Blood Count 11.5 T/CUMM (4-12)
[2018-10-01] MEDS: PIPERACILLIN/TAZOBACTAM 3,375 MG in SODIUM CHLORIDE 0.9% 100 ML IV SCH ×3 (05:26→20:00)
[2018-10-01] MEDS: POTASSIUM CHLORIDE RIDER 10 MEQ in PREMIX 1 EACH IV PRN ×5 (05:27→12:00)
[2018-10-01 05:31] LABS: Albumin 3.2 G/DL (3.4-5.0); Calcium 8.9 MG/DL (8.5-10.1); Osmolality,Calculated 269.5 MOS/KG (273-304); Potassium 2.9 MMOL/L (3.5-5.1); Risk Ratio 4.24; Total Protein 7.6 G/DL (6.4-8.3)
[2018-10-01] MEDS ORDERED: SPIRONOLACTONE 50 MG TABLET PO SCH (09:00)
[2018-10-01] MEDS ORDERED: PANTOPRAZOLE 40 MG VIAL IV SCH (09:00)
[2018-10-01] MEDS ORDERED: CARVEDILOL 12.5 MG TABLET PO SCH (09:00)
[2018-10-01] MEDS ORDERED: LISINOPRIL 20 MG TABLET PO SCH (09:00)
[2018-10-01] MEDS ORDERED: DIAZEPAM 5 MG TABLET ONE (09:18)
[2018-10-01] MEDS ORDERED: MIDAZOLAM 2 MG/2 ML VIAL ONE (09:40)
[2018-10-01] MEDS ORDERED: HEPARIN/NACL 0.9% 2 UNITS/ML 500 ML IV ONE (09:40)
[2018-10-01] MEDS ORDERED: LIDOCAINE 1% 20 ML VIAL ONE (09:40)
[2018-10-01] MEDS ORDERED: fentaNYL 100 MCG/2 ML VIAL ONE (09:41)
[2018-10-01] MEDS ORDERED: DIAZEPAM 5 MG TABLET PO ONE (09:47)
[2018-10-01] MEDS: amLODIPine 10 MG TABLET PO SCH (11:00)
[2018-10-01] MEDS: CARVEDILOL 25 MG TABLET PO SCH ×2 (11:00→20:01)
[2018-10-01] MEDS: ASPIRIN EC 81 MG TABLET PO SCH (11:00)
[2018-10-01 11:01] LABS: Basophils % 0.3 % (0.0-0.8); Eosinophils # 0.1 10*3/uL (0.0-0.87); Eosinophils % 0.6 % (0.00-10.9); Hematocrit 37.9 VOL% (42.0-52.0); Hemoglobin 12.6 GM/DL (14.0-18.0); Immature Granulocytes % 0.7 %; Immature Granulocytes Absolute 0.08 #; Lymphocytes % 16.6 % (21.2-54.2); Mean Corpuscular HGB Conc 33.2 GM/DL (32-36); Mean Corpuscular Hemoglobin 28 PG (27-34); Mean Corpuscular Volume 82.9 FL (87-102); Mean Platelet Volume 9.6 FL (9.6-12.0); Monocytes # 0.5 10*3/uL (0.11-0.8); Monocytes % 4.1 % (1.7-12.7); Neutrophils # 9.2 10*3/uL (1.4-7.4); Neutrophils % 77.7 % (38.7-73.9); Platelet Count 117 T/CUMM (130-400); Red Blood Count 4.57 MC/CUMM (3.8-5.5); Red Cell Distribution Width 14.2 % (9.3-17.3); White Blood Count 11.9 T/CUMM (4-12)
[2018-10-01] MEDS ORDERED: NICOTINE 14 MG/24 HR PATCH TRANSDERM PRN (15:02)
[2018-10-01] MEDS: HYDROmorphone 2 MG/1 ML VIAL IV PRN (17:25)
[2018-10-01] MEDS ORDERED: SPIRONOLACTONE 25 MG TABLET ONE (19:52)
[2018-10-01] MEDS: SPIRONOLACTONE 50 MG TABLET PO SCH (20:01)
[2018-10-01] MEDS: ENOXAPARIN 30 MG/0.3 ML SYRINGE SUBCUT SCH (20:01)
[2018-10-01 20:04] LABS: Barbiturates Screen,Urine Negative (Negative); Benzodiazepines Screen,Urine Positive (Negative); Cannabinoid Screen,Urine Positive (Negative); Opiate Screen,Urine Negative (Negative); Phencyclidine Screen,Urine Negative (Negative)
[2018-10-02] MEDS: ONDANSETRON 4 MG/2 ML VIAL IV PRN ×2 (00:20→15:55)
[2018-10-02] MEDS: HYDROmorphone 2 MG/1 ML VIAL IV PRN (01:38)
[2018-10-02 04:42] LABS: Basophils % 0.2 % (0.0-0.8); Eosinophils % 0.1 % (0.00-10.9); Hematocrit 35.8 VOL% (42.0-52.0); Immature Granulocytes % 0.3 %; Immature Granulocytes Absolute 0.03 #; Lymphocytes # 1.1 10*3/uL (1.4-4.0); Lymphocytes % 11.8 % (21.2-54.2); Mean Corpuscular HGB Conc 33.5 GM/DL (32-36); Mean Corpuscular Hemoglobin 28 PG (27-34); Mean Corpuscular Volume 84.2 FL (87-102); Mean Platelet Volume 11.3 FL (9.6-12.0); Monocytes # 0.5 10*3/uL (0.11-0.8); Monocytes % 5.3 % (1.7-12.7); Neutrophils # 7.6 10*3/uL (1.4-7.4); Neutrophils % 82.3 % (38.7-73.9); Platelet Count 137 T/CUMM (130-400); Red Blood Count 4.25 MC/CUMM (3.8-5.5); Red Cell Distribution Width 14.5 % (9.3-17.3); White Blood Count 9.2 T/CUMM (4-12)
[2018-10-02 05:04] LABS: Calcium 8.6 MG/DL (8.5-10.1); Osmolality,Calculated 272.4 MOS/KG (273-304); Potassium 3.7 MMOL/L (3.5-5.1)
[2018-10-02] MEDS: PIPERACILLIN/TAZOBACTAM 3,375 MG in SODIUM CHLORIDE 0.9% 100 ML IV SCH ×3 (05:40→21:54)
[2018-10-02] MEDS: ASPIRIN EC 81 MG TABLET PO SCH (09:07)
[2018-10-02] MEDS: SPIRONOLACTONE 50 MG TABLET PO SCH ×2 (09:07→21:54)
[2018-10-02] MEDS: PANTOPRAZOLE 40 MG TABLET PO SCH (09:07)
[2018-10-02] MEDS: amLODIPine 10 MG TABLET PO SCH (09:08)
[2018-10-02] MEDS: CARVEDILOL 25 MG TABLET PO SCH ×2 (09:08→21:55)
[2018-10-02] MEDS: PROMETHAZINE 25 MG/1 ML VIAL IM PRN (18:00)
[2018-10-02] MEDS: ENOXAPARIN 30 MG/0.3 ML SYRINGE SUBCUT SCH (21:55)
[2018-10-03 04:24] LABS: Basophils % 0.2 % (0.0-0.8); Eosinophils % 0.3 % (0.00-10.9); Immature Granulocytes % 0.5 %; Immature Granulocytes Absolute 0.06 #; Lymphocytes # 1.4 10*3/uL (1.4-4.0); Lymphocytes % 11.1 % (21.2-54.2); Mean Corpuscular HGB Conc 33.3 GM/DL (32-36); Mean Corpuscular Hemoglobin 28 PG (27-34); Mean Corpuscular Volume 84.5 FL (87-102); Mean Platelet Volume 10.7 FL (9.6-12.0); Monocytes # 0.7 10*3/uL (0.11-0.8); Monocytes % 5.5 % (1.7-12.7); Neutrophils % 82.4 % (38.7-73.9); Platelet Count 164 T/CUMM (130-400); Red Blood Count 4.26 MC/CUMM (3.8-5.5); Red Cell Distribution Width 14.6 % (9.3-17.3); White Blood Count 12.1 T/CUMM (4-12)
[2018-10-03 04:42] LABS: Calcium 8.1 MG/DL (8.5-10.1); Osmolality,Calculated 271.5 MOS/KG (273-304); Potassium 3.3 MMOL/L (3.5-5.1)
[2018-10-03] MEDS: PIPERACILLIN/TAZOBACTAM 3,375 MG in SODIUM CHLORIDE 0.9% 100 ML IV SCH ×3 (05:39→21:50)
[2018-10-03] MEDS: PANTOPRAZOLE 40 MG TABLET PO SCH (09:17)
[2018-10-03] MEDS: SPIRONOLACTONE 50 MG TABLET PO SCH ×2 (09:17→20:54)
[2018-10-03] MEDS: CARVEDILOL 25 MG TABLET PO SCH ×2 (09:17→20:54)
[2018-10-03] MEDS: ASPIRIN EC 81 MG TABLET PO SCH (09:17)
[2018-10-03] MEDS: amLODIPine 10 MG TABLET PO SCH (09:17)
[2018-10-03] MEDS: ACETAMINOPHEN 325 MG TABLET PO PRN (22:01)
[2018-10-04 05:05] LABS: Basophils % 0.2 % (0.0-0.8); Eosinophils # 0.1 10*3/uL (0.0-0.87); Eosinophils % 0.7 % (0.00-10.9); Hemoglobin 11.3 GM/DL (14.0-18.0); Immature Granulocytes % 0.5 %; Immature Granulocytes Absolute 0.05 #; Lymphocytes # 1.7 10*3/uL (1.4-4.0); Lymphocytes % 18.1 % (21.2-54.2); Mean Corpuscular HGB Conc 33.2 GM/DL (32-36); Mean Corpuscular Hemoglobin 28 PG (27-34); Mean Corpuscular Volume 83.5 FL (87-102); Mean Platelet Volume 10.4 FL (9.6-12.0); Monocytes # 0.6 10*3/uL (0.11-0.8); Monocytes % 6.4 % (1.7-12.7); Neutrophils % 74.1 % (38.7-73.9); Platelet Count 185 T/CUMM (130-400); Red Blood Count 4.07 MC/CUMM (3.8-5.5); Red Cell Distribution Width 14.4 % (9.3-17.3); White Blood Count 9.5 T/CUMM (4-12)
[2018-10-04 05:39] LABS: Calcium 8.1 MG/DL (8.5-10.1); Osmolality,Calculated 274.2 MOS/KG (273-304); Potassium 3.4 MMOL/L (3.5-5.1)
[2018-10-04 05:49] LABS: Albumin 2.1 G/DL (3.4-5.0); Bilirubin,Total 0.7 MG/DL (0.2-1.0); Calcium 8.3 MG/DL (8.5-10.1); Osmolality,Calculated 272.4 MOS/KG (273-304); Potassium 3.5 MMOL/L (3.5-5.1)
[2018-10-04] MEDS: PIPERACILLIN/TAZOBACTAM 3,375 MG in SODIUM CHLORIDE 0.9% 100 ML IV SCH ×3 (06:03→20:05)
[2018-10-04] MEDS ORDERED: LIDOCAINE 1%/EPI INJ 20 ML VIAL ONE (09:06)
[2018-10-04] MEDS ORDERED: TISSUE ADHESIVE 1 EACH APPLICATOR TOP ONE (09:06)
[2018-10-04] MEDS ORDERED: BUPIVACAINE 0.5% 50 ML VIAL ONE (09:06)
[2018-10-04] MEDS ORDERED: PHENYLEPHRINE DRIP 20 MG/250 ML PREMIX IV ONE (11:09)
[2018-10-04] MEDS ORDERED: fentaNYL 100 MCG/2 ML VIAL ONE (11:09)
[2018-10-04] MEDS ORDERED: PROPOFOL 200 MG/20 ML VIAL IV ONE (11:09)
[2018-10-04] MEDS ORDERED: ePHEDrine 50 MG/ML AMP ONE (11:10)
[2018-10-04] MEDS ORDERED: ROCURONIUM 100 MG/10 ML VIAL IV ONE (11:10)
[2018-10-04] MEDS ORDERED: SUCCINYLCHOLINE 200 MG/10 ML VIAL ONE (11:10)
[2018-10-04] MEDS ORDERED: NEOSTIGMINE 10 MG/10 ML VIAL ONE (11:10)
[2018-10-04] MEDS ORDERED: GLYCOPYRROLATE 0.4 MG/2 ML VIAL ONE ×2 (11:10)
[2018-10-04] MEDS ORDERED: LABETALOL 100 MG/20 ML VIAL IV ONE (11:10)
[2018-10-04] MEDS ORDERED: MIDAZOLAM 2 MG/2 ML VIAL ONE (11:10)
[2018-10-04] MEDS ORDERED: SODIUM CHLORIDE 0.9% 250 ML IV ONE (11:11)
[2018-10-04] MEDS: HYDROmorphone 2 MG/1 ML VIAL IV PRN ×2 (11:45→20:03)
[2018-10-04] MEDS: amLODIPine 10 MG TABLET PO SCH (11:47)
[2018-10-04] MEDS: SPIRONOLACTONE 50 MG TABLET PO SCH ×2 (11:47→20:05)
[2018-10-04] MEDS: ASPIRIN EC 81 MG TABLET PO SCH (11:47)
[2018-10-04] MEDS: CARVEDILOL 25 MG TABLET PO SCH ×2 (11:48→20:05)
[2018-10-04] MEDS: PANTOPRAZOLE 40 MG TABLET PO SCH (11:48)
[2018-10-04] MEDS: ONDANSETRON 4 MG/2 ML VIAL IV PRN (22:40)
[2018-10-05] MEDS: HYDROmorphone 2 MG/1 ML VIAL IV PRN ×5 (00:20→19:49)
[2018-10-05 05:29] LABS: Basophils % 0.3 % (0.0-0.8); Eosinophils # 0.2 10*3/uL (0.0-0.87); Eosinophils % 2.2 % (0.00-10.9); Hematocrit 32.2 VOL% (42.0-52.0); Hemoglobin 10.5 GM/DL (14.0-18.0); Immature Granulocytes % 0.5 %; Immature Granulocytes Absolute 0.04 #; Lymphocytes # 1.6 10*3/uL (1.4-4.0); Lymphocytes % 20.9 % (21.2-54.2); Mean Corpuscular HGB Conc 32.6 GM/DL (32-36); Mean Corpuscular Hemoglobin 28 PG (27-34); Mean Corpuscular Volume 85.6 FL (87-102); Mean Platelet Volume 10.3 FL (9.6-12.0); Monocytes # 0.5 10*3/uL (0.11-0.8); Monocytes % 6.5 % (1.7-12.7); Neutrophils # 5.4 10*3/uL (1.4-7.4); Neutrophils % 69.6 % (38.7-73.9); Platelet Count 221 T/CUMM (130-400); Red Blood Count 3.76 MC/CUMM (3.8-5.5); Red Cell Distribution Width 14.3 % (9.3-17.3); White Blood Count 7.7 T/CUMM (4-12)
[2018-10-05 05:47] LABS: Calcium 8.2 MG/DL (8.5-10.1); Osmolality,Calculated 276.1 MOS/KG (273-304); Potassium 3.6 MMOL/L (3.5-5.1)
[2018-10-05] MEDS: PIPERACILLIN/TAZOBACTAM 3,375 MG in SODIUM CHLORIDE 0.9% 100 ML IV SCH ×2 (05:50→17:35)
[2018-10-05] MEDS: LABETALOL 20 MG/4 ML SYRINGE IV PRN ×2 (06:17→15:14)
[2018-10-05] MEDS: PANTOPRAZOLE 40 MG TABLET PO SCH (08:39)
[2018-10-05] MEDS: ASPIRIN EC 81 MG TABLET PO SCH (08:39)
[2018-10-05] MEDS: amLODIPine 10 MG TABLET PO SCH (08:39)
[2018-10-05] MEDS: CARVEDILOL 25 MG TABLET PO SCH ×2 (08:39→22:06)
[2018-10-05] MEDS: SPIRONOLACTONE 50 MG TABLET PO SCH ×2 (08:39→22:05)
[2018-10-05] MEDS: SODIUM CHLORIDE 0.9% 1,000 ML IV SCH (13:05)
[2018-10-05] MEDS: ONDANSETRON 4 MG/2 ML VIAL IV PRN (19:30)
[2018-10-05] MEDS ORDERED: TERAZOSIN 1 MG CAPSULE PO SCH (21:00)
[2018-10-06] MEDS: PIPERACILLIN/TAZOBACTAM 3,375 MG in SODIUM CHLORIDE 0.9% 100 ML IV SCH ×3 (00:16→16:45)
[2018-10-06] MEDS: LABETALOL 20 MG/4 ML SYRINGE IV PRN ×2 (00:18→06:23)
[2018-10-06 05:06] LABS: Basophils % 0.3 % (0.0-0.8); Eosinophils # 0.2 10*3/uL (0.0-0.87); Eosinophils % 2.5 % (0.00-10.9); Hematocrit 29.5 VOL% (42.0-52.0); Hemoglobin 9.6 GM/DL (14.0-18.0); Immature Granulocytes % 0.4 %; Immature Granulocytes Absolute 0.03 #; Lymphocytes # 1.2 10*3/uL (1.4-4.0); Mean Corpuscular HGB Conc 32.5 GM/DL (32-36); Mean Corpuscular Hemoglobin 28 PG (27-34); Mean Platelet Volume 9.9 FL (9.6-12.0); Monocytes # 0.4 10*3/uL (0.11-0.8); Monocytes % 6.4 % (1.7-12.7); Neutrophils # 4.8 10*3/uL (1.4-7.4); Neutrophils % 72.4 % (38.7-73.9); Platelet Count 209 T/CUMM (130-400); Red Blood Count 3.47 MC/CUMM (3.8-5.5); White Blood Count 6.7 T/CUMM (4-12)
[2018-10-06 05:22] LABS: Calcium 8.3 MG/DL (8.5-10.1); Osmolality,Calculated 271.4 MOS/KG (273-304); Potassium 3.7 MMOL/L (3.5-5.1)
[2018-10-06] MEDS: HYDROmorphone 2 MG/1 ML VIAL IV PRN ×3 (06:28→20:32)
[2018-10-06] MEDS: SODIUM CHLORIDE 0.9% 1,000 ML IV SCH ×4 (06:32→17:55)
[2018-10-06] MEDS: ONDANSETRON 4 MG/2 ML VIAL IV PRN ×2 (08:47→14:47)
[2018-10-06] MEDS: SPIRONOLACTONE 50 MG TABLET PO SCH ×2 (08:48→20:33)
[2018-10-06] MEDS: CARVEDILOL 25 MG TABLET PO SCH ×2 (08:48→20:33)
[2018-10-06] MEDS: PANTOPRAZOLE 40 MG TABLET PO SCH (08:48)
[2018-10-06] MEDS: amLODIPine 10 MG TABLET PO SCH (08:48)
[2018-10-06] MEDS: ASPIRIN EC 81 MG TABLET PO SCH (08:49)
[2018-10-06] MEDS: PROMETHAZINE 25 MG/1 ML VIAL IM PRN (17:46)
[2018-10-06] MEDS ORDERED: TERAZOSIN 5 MG CAPSULE PO SCH (21:00)
[2018-10-07] MEDS: PIPERACILLIN/TAZOBACTAM 3,375 MG in SODIUM CHLORIDE 0.9% 100 ML IV SCH ×2 (00:53→08:42)
[2018-10-07 04:57] LABS: Basophils % 0.5 % (0.0-0.8); Eosinophils # 0.2 10*3/uL (0.0-0.87); Hematocrit 30.1 VOL% (42.0-52.0); Hemoglobin 9.7 GM/DL (14.0-18.0); Immature Granulocytes % 0.3 %; Immature Granulocytes Absolute 0.02 #; Lymphocytes # 1.2 10*3/uL (1.4-4.0); Lymphocytes % 19.6 % (21.2-54.2); Mean Corpuscular HGB Conc 32.2 GM/DL (32-36); Mean Corpuscular Hemoglobin 27 PG (27-34); Mean Corpuscular Volume 84.8 FL (87-102); Mean Platelet Volume 10.4 FL (9.6-12.0); Monocytes # 0.4 10*3/uL (0.11-0.8); Monocytes % 7.3 % (1.7-12.7); Neutrophils # 4.2 10*3/uL (1.4-7.4); Neutrophils % 69.3 % (38.7-73.9); Platelet Count 232 T/CUMM (130-400); Red Blood Count 3.55 MC/CUMM (3.8-5.5); Red Cell Distribution Width 13.8 % (9.3-17.3)
[2018-10-07] MEDS: ACETAMINOPHEN 325 MG TABLET PO PRN (05:03)
[2018-10-07 05:23] LABS: Calcium 8.2 MG/DL (8.5-10.1); Osmolality,Calculated 272.2 MOS/KG (273-304); Potassium 3.6 MMOL/L (3.5-5.1)
[2018-10-07] MEDS: HYDROmorphone 2 MG/1 ML VIAL IV PRN (05:48)
[2018-10-07] MEDS: ASPIRIN EC 81 MG TABLET PO SCH (08:42)
[2018-10-07] MEDS: PANTOPRAZOLE 40 MG TABLET PO SCH (08:42)
[2018-10-07] MEDS: SPIRONOLACTONE 50 MG TABLET PO SCH (08:42)
[2018-10-07] MEDS: CARVEDILOL 25 MG TABLET PO SCH (08:42)
[2018-10-07] MEDS: amLODIPine 10 MG TABLET PO SCH (08:42)
[2018-10-07] MEDS: SODIUM CHLORIDE 0.9% 1,000 ML IV SCH (08:50)
[2018-10-07 12:11] VITALS: BP 158/96
== END 2018-10-07 14:40 | disposition home or self-care (01) | DRG 418 ==
LOC: N.ED 15:51 → SUATTDRO 19:53 → N.EDINP 19:53 → N.CC 20:58 → N.TELES 10-02 14:48
PROVIDERS: ADMIT Internal Medicine; ATTEND Internal Medicine Nephrology
PROC: LAPCHOL (2018-10-04 09:22)

== ENCOUNTER 2018-11-25 02:43 | Inpatient (IN) ==
[2018-11-25] MEDS ORDERED: hydrALAZINE 20 MG/1 ML VIAL IV STA (03:05)
[2018-11-25 03:24] LABS: Basophils % 0.3 % (0.0-0.8); Eosinophils # 0.1 10*3/uL (0.0-0.87); Eosinophils % 0.9 % (0.00-10.9); Hematocrit 32.6 VOL% (42.0-52.0); Hemoglobin 10.7 GM/DL (14.0-18.0); Immature Granulocytes % 0.5 %; Immature Granulocytes Absolute 0.06 #; Lymphocytes # 1.7 10*3/uL (1.4-4.0); Lymphocytes % 14.1 % (21.2-54.2); Mean Corpuscular HGB Conc 32.8 GM/DL (32-36); Mean Corpuscular Hemoglobin 27 PG (27-34); Mean Corpuscular Volume 83.4 FL (87-102); Mean Platelet Volume 9.9 FL (9.6-12.0); Monocytes # 0.7 10*3/uL (0.11-0.8); Neutrophils # 9.2 10*3/uL (1.4-7.4); Neutrophils % 78.2 % (38.7-73.9); Platelet Count 103 T/CUMM (130-400); Red Blood Count 3.91 MC/CUMM (3.8-5.5); Red Cell Distribution Width 15.8 % (9.3-17.3); White Blood Count 11.8 T/CUMM (4-12)
[2018-11-25 03:32] LABS: INR 0.9; PT Patient Result 9.6 SECS
[2018-11-25] MEDS ORDERED: FUROSEMIDE 40 MG/4 ML VIAL IV STA (03:38)
[2018-11-25 03:51] LABS: Albumin 3.3 G/DL (3.4-5.0); Bilirubin,Total 0.6 MG/DL (0.2-1.0); Calcium 8.6 MG/DL (8.5-10.1); Osmolality,Calculated 280.4 MOS/KG (273-304); Potassium 2.9 MMOL/L (3.5-5.1); Total Protein 6.9 G/DL (6.4-8.3)
[2018-11-25] MEDS ORDERED: POTASSIUM BICARB EFFERVESCENT 25 MEQ TABLET PO ONE (04:17)
[2018-11-25] MEDS ORDERED: ONDANSETRON 4 MG/2 ML VIAL ONE (04:36)
[2018-11-25] MEDS ORDERED: niCARdipine 25 MG/10 ML VIAL IV ONE ×2 (04:49→06:29)
[2018-11-25] MEDS: niCARdipine INJ 25 MG in SODIUM CHLORIDE 0.9% 240 ML IV PRN ×4 (05:00→17:50)
[2018-11-25] MEDS ORDERED: ALBUTEROL 2.5 MG/3 ML NEB RESP TX PRN (05:37)
[2018-11-25] MEDS ORDERED: ACETAMINOPHEN 325 MG TABLET PO PRN (05:37)
[2018-11-25] MEDS ORDERED: DOCUSATE SODIUM 100 MG CAPSULE PO PRN (05:37)
[2018-11-25] MEDS ORDERED: POTASSIUM CHLORIDE RIDER 10 MEQ in PREMIX 1 EACH IV PRN (06:33)
[2018-11-25] MEDS ORDERED: NITROGLYCERIN SL 0.4 MG TABLET SL PRN (07:06)
[2018-11-25] MEDS: ROSUVASTATIN 20 MG TABLET PO SCH (08:30)
[2018-11-25] MEDS: MORPHINE 4 MG/1 ML VIAL IV PRN ×3 (08:30→21:05)
[2018-11-25 08:42] LABS: Calcium 8.8 MG/DL (8.5-10.1); Osmolality,Calculated 281.4 MOS/KG (273-304); Potassium 2.8 MMOL/L (3.5-5.1)
[2018-11-25] MEDS ORDERED: ASPIRIN CHEW 81 MG TABLET PO SCH (09:00)
[2018-11-25] MEDS ORDERED: POTASSIUM CHLORIDE 20 MEQ TABLET PO ONE ×2 (09:54→17:57)
[2018-11-25] MEDS ORDERED: SPIRONOLACTONE 25 MG TABLET PO SCH (14:30)
[2018-11-25 15:23] LABS: Calcium 8.9 MG/DL (8.5-10.1); Osmolality,Calculated 279.5 MOS/KG (273-304); Potassium 2.9 MMOL/L (3.5-5.1)
[2018-11-25] MEDS: CARVEDILOL 25 MG TABLET PO SCH ×2 (15:30→21:08)
[2018-11-25] MEDS: ONDANSETRON 4 MG/2 ML VIAL IV PRN (21:05)
[2018-11-25] MEDS: TERAZOSIN 5 MG CAPSULE PO SCH (21:08)
[2018-11-25 23:43] LABS: Apearance,Urine CLEAR (Clear); Bilirubin,Urine Negative (Negative); Blood, Urine Negative (Negative); Glucose,Urine (UA) 50 mg/dL (Negative); Ketones,Urine Negative (Negative); Nitrite,Urine Negative (Negative); Protein,Urine >=500 MG/DL; RBC,Urine 4 /HPF (0-4); Squamous Epithelial Cell,Urine Occasional /HPF (0-10); Urine Color Yellow (Yellow); Urine Specific Gravity 1.013 (1.001-1.035); Urine Urobilinogen < 2.0 EU/DL (0.2-1.0); WBC,Urine 5 /HPF (0-6)
[2018-11-25 23:49] LABS: Barbiturates Screen,Urine Negative (Negative); Benzodiazepines Screen,Urine Negative (Negative); Cannabinoid Screen,Urine Negative (Negative); Opiate Screen,Urine Positive (Negative); Phencyclidine Screen,Urine Negative (Negative)
[2018-11-26 00:14] LABS: Microalbum/Creat Ratio Random 1769.7 RATIO (0-30)
[2018-11-26] MEDS: ONDANSETRON 4 MG/2 ML VIAL IV PRN ×3 (03:35→23:17)
[2018-11-26] MEDS: MORPHINE 4 MG/1 ML VIAL IV PRN ×4 (03:35→23:17)
[2018-11-26 05:10] LABS: Basophils % 0.2 % (0.0-0.8); Eosinophils # 0.2 10*3/uL (0.0-0.87); Eosinophils % 1.7 % (0.00-10.9); Immature Granulocytes % 0.6 %; Immature Granulocytes Absolute 0.07 #; Lymphocytes # 1.9 10*3/uL (1.4-4.0); Lymphocytes % 15.3 % (21.2-54.2); Mean Corpuscular HGB Conc 32.1 GM/DL (32-36); Mean Corpuscular Hemoglobin 27 PG (27-34); Mean Corpuscular Volume 84.6 FL (87-102); Mean Platelet Volume 11.8 FL (9.6-12.0); Monocytes # 0.6 10*3/uL (0.11-0.8); Monocytes % 4.8 % (1.7-12.7); Neutrophils # 9.8 10*3/uL (1.4-7.4); Neutrophils % 77.4 % (38.7-73.9); Platelet Count 151 T/CUMM (130-400); Red Blood Count 3.31 MC/CUMM (3.8-5.5); Red Cell Distribution Width 15.8 % (9.3-17.3); White Blood Count 12.7 T/CUMM (4-12)
[2018-11-26 05:26] LABS: Calcium 8.4 MG/DL (8.5-10.1); Osmolality,Calculated 276.7 MOS/KG (273-304); Potassium 3.2 MMOL/L (3.5-5.1)
[2018-11-26 05:27] LABS: Calcium 8.4 MG/DL (8.5-10.1); Osmolality,Calculated 273.8 MOS/KG (273-304); Potassium 3.2 MMOL/L (3.5-5.1)
[2018-11-26 05:29] LABS: Total Protein 6.6 G/DL (6.4-8.3)
[2018-11-26 06:19] LABS: Hepatitis A Ab IgM Quant 0.16 Index; Hepatitis A Ab IgM Result Negative (Negative); Hepatitis B Core IgM Quant 0.11 Index; Hepatitis B Core IgM Result Negative (Negative); Hepatitis B Surface Ag Quant < 0.10 Index; Hepatitis B Surface Ag Result Negative (Negative); Hepatitis C Virus Ab Quant 0.05 Index; Hepatitis C Virus Ab Result Negative (Negative)
[2018-11-26 08:16] LABS: Albumin (SPE) 3.4 G/DL (3.2-5.3); Albumin (SPE) Rel % 51.5 %; Alpha 1 (SPE) 0.4 G/DL (0.1-0.4); Alpha 1 (SPE) Rel % 5.7 %; Alpha 2 (SPE) 0.8 G/DL (0.4-1.0); Alpha 2 (SPE) Rel % 11.5 %; Beta (SPE) 0.8 G/DL (0.5-1.1); Beta (SPE) Rel % 12.8 %; Gamma (SPE) 1.2 G/DL (0.7-1.7); Gamma (SPE) Rel % 18.5 %; Total Protein (Chem) 6.6 G/DL (6.4-8.3)
[2018-11-26] MEDS: amLODIPine 10 MG TABLET PO SCH (08:42)
[2018-11-26] MEDS: ROSUVASTATIN 20 MG TABLET PO SCH (08:43)
[2018-11-26] MEDS: ASPIRIN EC 81 MG TABLET PO SCH (08:43)
[2018-11-26] MEDS: PANTOPRAZOLE 40 MG TABLET PO SCH (08:44)
[2018-11-26] MEDS: CARVEDILOL 25 MG TABLET PO SCH ×2 (08:44→21:10)
[2018-11-26] MEDS ORDERED: POTASSIUM CHLORIDE 20 MEQ TABLET PO ONE (08:49)
[2018-11-26] MEDS ORDERED: ASPIRIN EC 81 MG TABLET PO SCH (09:00)
[2018-11-26] MEDS ORDERED: ceFAZolin 1,000 MG in SYRINGE 1 EACH IV ONE (15:24)
[2018-11-26] MEDS ORDERED: BUPIVACAINE 0.5% 50 ML VIAL ONE (16:19)
[2018-11-26] MEDS ORDERED: HEPARIN 5,000 UNIT/1 ML VIAL ONE (16:19)
[2018-11-26] MEDS ORDERED: LIDOCAINE 1% 20 ML VIAL ONE (16:19)
[2018-11-26] MEDS ORDERED: niCARdipine 25 MG/10 ML VIAL IV ONE (17:26)
[2018-11-26] MEDS ORDERED: hydrALAZINE 20 MG/1 ML VIAL ONE (17:33)
[2018-11-26] MEDS ORDERED: MIDAZOLAM 2 MG/2 ML VIAL ONE (17:33)
[2018-11-26] MEDS ORDERED: SODIUM CHLORIDE 0.9% 250 ML IV ONE (17:33)
[2018-11-26] MEDS ORDERED: PROPOFOL 200 MG/20 ML VIAL IV ONE (17:35)
[2018-11-26] MEDS: niCARdipine INJ 25 MG in SODIUM CHLORIDE 0.9% 240 ML IV PRN ×2 (17:40→22:32)
[2018-11-26] MEDS ORDERED: HEPARIN 10,000 UNIT/10 ML VIAL IV PRN (18:49)
[2018-11-26] MEDS: TERAZOSIN 5 MG CAPSULE PO SCH (21:10)
[2018-11-27 04:19] LABS: Basophils % 0.3 % (0.0-0.8); Eosinophils # 0.1 10*3/uL (0.0-0.87); Eosinophils % 1.2 % (0.00-10.9); Hematocrit 26.5 VOL% (42.0-52.0); Hemoglobin 8.4 GM/DL (14.0-18.0); Immature Granulocytes % 0.6 %; Immature Granulocytes Absolute 0.07 #; Lymphocytes # 1.9 10*3/uL (1.4-4.0); Lymphocytes % 17.3 % (21.2-54.2); Mean Corpuscular HGB Conc 31.7 GM/DL (32-36); Mean Corpuscular Hemoglobin 27 PG (27-34); Mean Corpuscular Volume 84.9 FL (87-102); Mean Platelet Volume 9.7 FL (9.6-12.0); Monocytes # 0.8 10*3/uL (0.11-0.8); Monocytes % 6.9 % (1.7-12.7); Neutrophils # 8.3 10*3/uL (1.4-7.4); Neutrophils % 73.7 % (38.7-73.9); Platelet Count 164 T/CUMM (130-400); Red Blood Count 3.12 MC/CUMM (3.8-5.5); Red Cell Distribution Width 16.1 % (9.3-17.3); White Blood Count 11.2 T/CUMM (4-12)
[2018-11-27] MEDS: MORPHINE 4 MG/1 ML VIAL IV PRN ×3 (04:26→21:11)
[2018-11-27] MEDS: ONDANSETRON 4 MG/2 ML VIAL IV PRN (04:27)
[2018-11-27 05:06] LABS: Albumin 2.4 G/DL (3.4-5.0); Bilirubin,Total 0.4 MG/DL (0.2-1.0); Calcium 8.3 MG/DL (8.5-10.1); Osmolality,Calculated 275.5 MOS/KG (273-304); Potassium 3.5 MMOL/L (3.5-5.1); Total Protein 6.5 G/DL (6.4-8.3)
[2018-11-27] MEDS ORDERED: EPOETIN ALFA 2,000 UNIT/1 ML VIAL IV PRN (07:48)
[2018-11-27 08:08] LABS: % Iron Saturation 8.2 % (18-50)
[2018-11-27] MEDS: ROSUVASTATIN 20 MG TABLET PO SCH (09:24)
[2018-11-27] MEDS: ASPIRIN EC 81 MG TABLET PO SCH (09:24)
[2018-11-27] MEDS: PANTOPRAZOLE 40 MG TABLET PO SCH (09:24)
[2018-11-27] MEDS ORDERED: POTASSIUM CHLORIDE 10 MEQ TABLET PO ONE (09:30)
[2018-11-27] MEDS: amLODIPine 10 MG TABLET PO SCH (11:58)
[2018-11-27] MEDS: TERAZOSIN 10 MG CAPSULE PO SCH ×2 (11:59→21:12)
[2018-11-27] MEDS: CARVEDILOL 25 MG TABLET PO SCH ×2 (11:59→21:12)
[2018-11-27] MEDS: niCARdipine INJ 25 MG in SODIUM CHLORIDE 0.9% 240 ML IV PRN (22:21)
[2018-11-27] MEDS ORDERED: FUROSEMIDE 100 MG/10 ML VIAL IV ONE (22:53)
[2018-11-27] MEDS ORDERED: MORPHINE 4 MG/1 ML VIAL IV ONE (22:53)
[2018-11-27] MEDS ORDERED: FUROSEMIDE 40 MG/4 ML VIAL ONE (22:56)
[2018-11-28] MEDS: ALUMINUM/MAGNES/SIMETH MAX STR 30 ML UDCUP PO PRN ×2 (00:35→20:23)
[2018-11-28 02:25] LABS: Total Protein 24 Hr Ur Result 3432 MG/24HR (0-149.1); Total Volume,Urine 575 ML (400-2000)
[2018-11-28] MEDS: MORPHINE 4 MG/1 ML VIAL IV PRN ×2 (02:54→20:23)
[2018-11-28 05:02] LABS: Basophils % 0.3 % (0.0-0.8); Eosinophils # 0.2 10*3/uL (0.0-0.87); Eosinophils % 1.5 % (0.00-10.9); Hematocrit 27.2 VOL% (42.0-52.0); Hemoglobin 8.7 GM/DL (14.0-18.0); Immature Granulocytes % 1.1 %; Immature Granulocytes Absolute 0.12 #; Lymphocytes # 1.3 10*3/uL (1.4-4.0); Lymphocytes % 11.8 % (21.2-54.2); Mean Corpuscular Hemoglobin 27 PG (27-34); Mean Corpuscular Volume 85.5 FL (87-102); Monocytes # 0.8 10*3/uL (0.11-0.8); Monocytes % 6.7 % (1.7-12.7); Neutrophils # 8.9 10*3/uL (1.4-7.4); Neutrophils % 78.6 % (38.7-73.9); Platelet Count 228 T/CUMM (130-400); Red Blood Count 3.18 MC/CUMM (3.8-5.5); Red Cell Distribution Width 15.7 % (9.3-17.3); White Blood Count 11.3 T/CUMM (4-12)
[2018-11-28 05:14] LABS: Calcium 8.3 MG/DL (8.5-10.1); Osmolality,Calculated 272.5 MOS/KG (273-304); Potassium 3.6 MMOL/L (3.5-5.1)
[2018-11-28] MEDS: niCARdipine INJ 25 MG in SODIUM CHLORIDE 0.9% 240 ML IV PRN (05:16)
[2018-11-28] MEDS: CARVEDILOL 25 MG TABLET PO SCH (08:45)
[2018-11-28] MEDS: PANTOPRAZOLE 40 MG TABLET PO SCH (08:45)
[2018-11-28] MEDS: ASPIRIN EC 81 MG TABLET PO SCH (08:45)
[2018-11-28] MEDS: ROSUVASTATIN 20 MG TABLET PO SCH (08:46)
[2018-11-28] MEDS: amLODIPine 10 MG TABLET PO SCH (08:46)
[2018-11-28 11:21] LABS: Albumin (UPE) 1990.6 MG/24H; Alpha 1 (UPE) 274.6 MG/24H; Alpha 2 (UPE) 312.3 MG/24H; Alpha 2 (UPE) Rel % 9.1 %; Beta (UPE) 298.6 MG/24H; Beta (UPE) Rel % 8.7 %; Gamma (UPE) Rel % 16.2 %
[2018-11-28] MEDS: TERAZOSIN 10 MG CAPSULE PO SCH ×2 (13:01→20:23)
[2018-11-28] MEDS: METOPROLOL SUCCINATE XL 100 MG TABLET PO SCH (20:23)
[2018-11-28] MEDS: hydrALAZINE 20 MG/1 ML VIAL IV PRN (22:32)
[2018-11-28] MEDS ORDERED: hydrALAZINE 20 MG/1 ML VIAL ONE (22:37)
[2018-11-29] MEDS: MORPHINE 4 MG/1 ML VIAL IV PRN ×3 (02:02→22:43)
[2018-11-29 05:01] LABS: Basophils % 0.4 % (0.0-0.8); Eosinophils # 0.3 10*3/uL (0.0-0.87); Eosinophils % 2.9 % (0.00-10.9); Hematocrit 27.5 VOL% (42.0-52.0); Hemoglobin 8.6 GM/DL (14.0-18.0); Immature Granulocytes % 1.1 %; Immature Granulocytes Absolute 0.12 #; Lymphocytes # 1.8 10*3/uL (1.4-4.0); Lymphocytes % 16.4 % (21.2-54.2); Mean Corpuscular HGB Conc 31.3 GM/DL (32-36); Mean Corpuscular Hemoglobin 27 PG (27-34); Mean Corpuscular Volume 85.9 FL (87-102); Mean Platelet Volume 10.2 FL (9.6-12.0); Monocytes % 8.8 % (1.7-12.7); NRBC # 0.02 10*3/uL; Neutrophils # 7.7 10*3/uL (1.4-7.4); Neutrophils % 70.4 % (38.7-73.9); Platelet Count 280 T/CUMM (130-400); Red Cell Distribution Width 15.3 % (9.3-17.3); White Blood Count 10.9 T/CUMM (4-12)
[2018-11-29 05:27] LABS: Calcium 8.6 MG/DL (8.5-10.1); Osmolality,Calculated 270.5 MOS/KG (273-304); Potassium 3.8 MMOL/L (3.5-5.1)
[2018-11-29] MEDS: hydrALAZINE 20 MG/1 ML VIAL IV PRN (05:38)
[2018-11-29] MEDS ORDERED: METOPROLOL SUCCINATE XL 100 MG TABLET PO SCH (09:00)
[2018-11-29] MEDS: ASPIRIN EC 81 MG TABLET PO SCH (10:25)
[2018-11-29] MEDS: ROSUVASTATIN 20 MG TABLET PO SCH (10:25)
[2018-11-29] MEDS: TERAZOSIN 10 MG CAPSULE PO SCH ×2 (10:25→21:56)
[2018-11-29] MEDS: MINOXIDIL 2.5 MG TABLET PO SCH (10:25)
[2018-11-29] MEDS: amLODIPine 10 MG TABLET PO SCH (10:26)
[2018-11-29] MEDS: PANTOPRAZOLE 40 MG TABLET PO SCH (10:26)
[2018-11-29] MEDS: METOPROLOL SUCCINATE XL 100 MG TABLET PO SCH (10:30)
[2018-11-29] MEDS: ONDANSETRON 4 MG/2 ML VIAL IV PRN ×2 (10:32→20:23)
[2018-11-29] MEDS ORDERED: FUROSEMIDE INJ 160 MG in SODIUM CHLORIDE 0.9% 50 ML IV ONE (11:30)
[2018-11-29 13:11] LABS: Homovanillic Acid, VH 2.4 mg/g Cr (<8.0)
[2018-11-29 17:11] LABS: Metanephrine/Creatinine Ratio 322 mcg/g Cr; Normetanephrine/Creat Ratio 1119 mcg/g Cr; Total Metaneph/Creat Rati 1441 mcg/g Cr
[2018-11-30] MEDS: TERAZOSIN 10 MG CAPSULE PO SCH ×3 (08:30→20:52)
[2018-11-30] MEDS: MINOXIDIL 2.5 MG TABLET PO SCH ×2 (08:30→14:27)
[2018-11-30] MEDS: ASPIRIN EC 81 MG TABLET PO SCH ×2 (08:30→14:26)
[2018-11-30] MEDS: PANTOPRAZOLE 40 MG TABLET PO SCH ×2 (08:31→14:27)
[2018-11-30] MEDS: ROSUVASTATIN 20 MG TABLET PO SCH ×2 (08:31→14:27)
[2018-11-30] MEDS: METOPROLOL SUCCINATE XL 100 MG TABLET PO SCH ×2 (08:31→14:27)
[2018-11-30] MEDS: amLODIPine 10 MG TABLET PO SCH ×2 (08:34→14:27)
[2018-11-30] MEDS: ALUMINUM/MAGNES/SIMETH MAX STR 30 ML UDCUP PO PRN ×2 (16:40→23:14)
[2018-11-30] MEDS: MORPHINE 4 MG/1 ML VIAL IV PRN (18:31)
[2018-12-01] MEDS: METOPROLOL SUCCINATE XL 100 MG TABLET PO SCH (08:53)
[2018-12-01] MEDS: ASPIRIN EC 81 MG TABLET PO SCH (08:53)
[2018-12-01] MEDS: MINOXIDIL 2.5 MG TABLET PO SCH (08:53)
[2018-12-01] MEDS: amLODIPine 10 MG TABLET PO SCH (08:54)
[2018-12-01] MEDS: TERAZOSIN 10 MG CAPSULE PO SCH ×2 (08:54→20:53)
[2018-12-01] MEDS: ROSUVASTATIN 20 MG TABLET PO SCH (08:58)
[2018-12-01] MEDS: PANTOPRAZOLE 40 MG TABLET PO SCH (08:58)
[2018-12-02] MEDS: MINOXIDIL 2.5 MG TABLET PO SCH (09:23)
[2018-12-02] MEDS: PANTOPRAZOLE 40 MG TABLET PO SCH (09:24)
[2018-12-02] MEDS: amLODIPine 10 MG TABLET PO SCH (09:24)
[2018-12-02] MEDS: TERAZOSIN 10 MG CAPSULE PO SCH ×2 (09:24→22:05)
[2018-12-02] MEDS: ROSUVASTATIN 20 MG TABLET PO SCH (09:24)
[2018-12-02] MEDS: METOPROLOL SUCCINATE XL 100 MG TABLET PO SCH (09:24)
[2018-12-02] MEDS: ASPIRIN EC 81 MG TABLET PO SCH (09:24)
[2018-12-03] MEDS: ALUMINUM/MAGNES/SIMETH MAX STR 30 ML UDCUP PO PRN (04:34)
[2018-12-03] MEDS: ASPIRIN EC 81 MG TABLET PO SCH (13:04)
[2018-12-03] MEDS: METOPROLOL SUCCINATE XL 100 MG TABLET PO SCH (13:05)
[2018-12-03] MEDS: amLODIPine 10 MG TABLET PO SCH (13:05)
[2018-12-03] MEDS: TERAZOSIN 10 MG CAPSULE PO SCH (13:05)
[2018-12-03] MEDS: PANTOPRAZOLE 40 MG TABLET PO SCH (13:05)
[2018-12-03] MEDS: MINOXIDIL 2.5 MG TABLET PO SCH (13:05)
[2018-12-03] MEDS: ROSUVASTATIN 20 MG TABLET PO SCH (13:05)
[2018-12-03 15:56] VITALS: BP 134/67
== END 2018-12-03 16:51 | disposition home or self-care (01) | DRG 291 ==
LOC: UNDODISIN → N.ED 02:43 → N.EDINP 05:20 → SUATTDRO 05:20 → N.CC 05:57 → N.TELEN 11-26 15:27 → N.CC 11-26 16:58 → N.5E 11-29 16:09
PROVIDERS: ADMIT Family Medicine; ATTEND Internal Medicine

== ENCOUNTER 2019-04-29 20:47 | Inpatient (IN) ==
[2019-04-29] MEDS ORDERED: MORPHINE 4 MG/1 ML VIAL IV STA (21:16)
[2019-04-29] MEDS ORDERED: ONDANSETRON 4 MG/2 ML VIAL IV STA (21:16)
[2019-04-29] MEDS ORDERED: VANCOMYCIN INJ 1,000 MG in SODIUM CHLORIDE 0.9% 250 ML IV STA ×4 (21:22→23:35)
[2019-04-29] MEDS ORDERED: GENTAMICIN INJ 80 MG in SODIUM CHLORIDE 0.9% 100 ML IV STA (21:22)
[2019-04-29] MEDS ORDERED: GENTAMICIN INJ 50 ML IV STA (21:34)
[2019-04-29 22:33] LABS: Basophils % 0.2 % (0.0-0.8); Eosinophils # 0.1 10*3/uL (0.0-0.87); Eosinophils % 0.4 % (0.00-10.9); Hematocrit 31.2 VOL% (42.0-52.0); Hemoglobin 9.9 GM/DL (14.0-18.0); Immature Granulocytes % 0.5 %; Immature Granulocytes Absolute 0.06 #; Lymphocytes # 0.9 10*3/uL (1.4-4.0); Lymphocytes % 7.6 % (21.2-54.2); Mean Corpuscular HGB Conc 31.7 GM/DL (32-36); Mean Corpuscular Volume 84.6 FL (87-102); Mean Platelet Volume 8.9 FL (9.6-12.0); Monocytes % 3.3 % (1.7-12.7); Platelet Count 208 T/CUMM (130-400); Red Blood Count 3.69 MC/CUMM (3.8-5.5); White Blood Count 11.6 T/CUMM (4-12)
[2019-04-29 22:53] LABS: Albumin 4.2 G/DL (3.4-5.0); Bilirubin,Total 0.5 MG/DL (0.2-1.0); Calcium 9.2 MG/DL (8.5-10.1); Osmolality,Calculated 282.5 MOS/KG (273-304)
[2019-04-29] MEDS ORDERED: hydrALAZINE 20 MG/1 ML VIAL IV STA (23:16)
[2019-04-29] MEDS ORDERED: VANCOMYCIN 1,000 MG VIAL ONE (23:34)
[2019-04-30] MEDS ORDERED: ONDANSETRON 4 MG/2 ML VIAL IV PRN (03:24)
[2019-04-30] MEDS ORDERED: DOCUSATE SODIUM 100 MG CAPSULE PO PRN (03:24)
[2019-04-30] MEDS ORDERED: ACETAMINOPHEN 325 MG TABLET PO PRN (03:24)
[2019-04-30] MEDS ORDERED: HYDROmorphone 2 MG/1 ML VIAL IV PRN (03:24)
[2019-04-30 06:46] LABS: Basophils % 0.2 % (0.0-0.8); Eosinophils # 0.1 10*3/uL (0.0-0.87); Eosinophils % 0.6 % (0.00-10.9); Hematocrit 25.7 VOL% (42.0-52.0); Hemoglobin 8.5 GM/DL (14.0-18.0); Immature Granulocytes % 0.6 %; Immature Granulocytes Absolute 0.06 #; Lymphocytes # 1.9 10*3/uL (1.4-4.0); Lymphocytes % 18.8 % (21.2-54.2); Mean Corpuscular HGB Conc 33.1 GM/DL (32-36); Mean Corpuscular Volume 83.4 FL (87-102); Mean Platelet Volume 8.9 FL (9.6-12.0); Neutrophils % 75.8 % (38.7-73.9); Platelet Count 193 T/CUMM (130-400); Red Blood Count 3.08 MC/CUMM (3.8-5.5); White Blood Count 9.9 T/CUMM (4-12)
[2019-04-30 07:04] LABS: Calcium 8.6 MG/DL (8.5-10.1); Osmolality,Calculated 283.4 MOS/KG (273-304)
[2019-04-30 12:12] VITALS: BP 180/113
[2019-04-30] MEDS ORDERED: GENTAMICIN INJ 120 MG in PREMIX 1 EACH IV PRN (14:00)
[2019-04-30] MEDS ORDERED: NITROGLYCERIN SL 0.4 MG TABLET SL PRN (14:34)
[2019-04-30] MEDS ORDERED: amLODIPine 10 MG TABLET PO SCH (15:00)
[2019-04-30] MEDS ORDERED: VANCOMYCIN INJ 1,000 MG in SODIUM CHLORIDE 0.9% 250 ML IV PRN (15:00)
[2019-04-30] MEDS ORDERED: CARVEDILOL 25 MG TABLET PO SCH (15:00)
[2019-04-30] MEDS ORDERED: ROSUVASTATIN 20 MG TABLET PO SCH (21:00)
== END 2019-04-30 15:45 | disposition left against medical advice (07) | DRG 391 ==
LOC: N.ED 20:47 → N.EDINP 04-30 01:03 → N.5E 04-30 01:18
PROVIDERS: ADMIT Internal Medicine; ATTEND Internal Medicine

== ENCOUNTER 2022-10-04 03:39 | Inpatient (IN) ==
[2022-10-04] MEDS ORDERED: ONDANSETRON 4 MG/2 ML VIAL IV STA (04:01)
[2022-10-04] MEDS ORDERED: HYDROmorphone 1 MG/1 ML SYRINGE IV STA (04:01)
[2022-10-04] MEDS ORDERED: PANTOPRAZOLE 40 MG VIAL IV STA (04:01)
[2022-10-04] MEDS ORDERED: ONDANSETRON 4 MG/2 ML VIAL ONE (04:04)
[2022-10-04] MEDS ORDERED: HYDROmorphone 1 MG/1 ML SYRINGE ONE (04:04)
[2022-10-04 05:03] LABS: Alanine Aminotransferase 13 U/L (16-61); Albumin 2.6 G/DL (3.4-5.0); Alkaline Phosphatase 61 U/L (45-117); Amylase 68 U/L (25-115); Aspartate Amino Transferase 24 U/L (0-37); Bilirubin,Total < 0.39 MG/DL (0.20-1.00); Blood Urea Nitrogen 37 MG/DL (7-18); Calcium 8.4 MG/DL (8.5-10.1); Carbon Dioxide 29 MMOL/L (21-32); Chloride 98 MMOL/L (98-107); Glucose 98 MG/DL (74-106); Potassium 3.3 MMOL/L (3.5-5.1); Sodium 136 MMOL/L (136-145); Total Protein 6.3 G/DL (6.4-8.2)
[2022-10-04 05:04] LABS: Basophils % 0.2 % (0.0-0.8); Eosinophils # 0.2 10*3/uL (0.0-0.87); Eosinophils % 2.1 % (0.00-10.9); Hematocrit 34.5 VOL% (42.0-52.0); Hemoglobin 11.2 GM/DL (14.0-18.0); Immature Granulocytes % 0.3 %; Immature Granulocytes Absolute 0.03 #; Lymphocytes # 1.7 10*3/uL (1.4-4.0); Lymphocytes % 19.8 % (21.2-54.2); Mean Corpuscular HGB Conc 32.5 GM/DL (32-36); Mean Corpuscular Volume 86.7 FL (87-102); Mean Platelet Volume 9.4 FL (9.6-12.0); Monocytes # 0.7 10*3/uL (0.11-0.8); Monocytes % 7.6 % (1.7-12.7); Platelet Count 272 T/CUMM (130-400); Red Blood Count 3.98 MC/CUMM (3.8-5.5); Red Cell Distribution Width 14.6 % (9.3-17.3); White Blood Count 8.7 T/CUMM (4-12)
[2022-10-04] MEDS ORDERED: ACETAMINOPHEN 325 MG TABLET PO PRN (05:52)
[2022-10-04] MEDS ORDERED: ZALEPLON 5 MG CAPSULE PO PRN (05:52)
[2022-10-04] MEDS ORDERED: diphenhydrAMINE CAP 25 MG CAPSULE PO PRN (05:52)
[2022-10-04] MEDS ORDERED: guaiFENesin/DM ER 600-30 MG TABLET PO PRN (05:52)
[2022-10-04] MEDS ORDERED: NICOTINE 21 MG/24 HR PATCH TRANSDERM PRN (05:52)
[2022-10-04] MEDS ORDERED: cefTRIAXone 1,000 MG in SODIUM CHLORIDE 0.9% 100 ML IV SCH (06:15)
[2022-10-04] MEDS: metroNIDAZOLE INJ 500 MG/100 ML PREMIX IV SCH ×3 (06:48→22:27)
[2022-10-04] MEDS: PANTOPRAZOLE 40 MG TABLET PO SCH (09:06)
[2022-10-04] MEDS: MORPHINE 2 MG/1 ML SYRINGE IV PRN (15:11)
[2022-10-04] MEDS: hydrALAZINE 20 MG/1 ML VIAL IV PRN ×2 (15:12→23:40)
[2022-10-04] MEDS ORDERED: cefTRIAXone 1,000 MG VIAL INTRAPERIT SCH (18:00)
[2022-10-05] MEDS ORDERED: VANCOMYCIN 1,000 MG VIAL INTRAPERIT ONE
[2022-10-05] MEDS: HEPARIN 1,000 UNIT/1 ML VIAL INTRAPERIT SCH ×2 (00:52→10:08)
[2022-10-05] MEDS: MORPHINE 2 MG/1 ML SYRINGE IV PRN ×3 (01:18→17:31)
[2022-10-05 05:04] LABS: Basophils % 0.3 % (0.0-0.8); Eosinophils # 0.2 10*3/uL (0.0-0.87); Eosinophils % 2.8 % (0.00-10.9); Hematocrit 31.1 VOL% (42.0-52.0); Hemoglobin 10.3 GM/DL (14.0-18.0); Immature Granulocytes % 0.3 %; Immature Granulocytes Absolute 0.02 #; Lymphocytes # 1.5 10*3/uL (1.4-4.0); Lymphocytes % 22.9 % (21.2-54.2); Mean Corpuscular HGB Conc 33.1 GM/DL (32-36); Mean Corpuscular Volume 85.4 FL (87-102); Mean Platelet Volume 9.5 FL (9.6-12.0); Monocytes # 0.5 10*3/uL (0.11-0.8); Monocytes % 7.1 % (1.7-12.7); Neutrophils % 66.6 % (38.7-73.9); Platelet Count 240 T/CUMM (130-400); Red Blood Count 3.64 MC/CUMM (3.8-5.5); Red Cell Distribution Width 14.3 % (9.3-17.3); White Blood Count 6.7 T/CUMM (4-12)
[2022-10-05 05:21] LABS: Calcium 8.5 MG/DL (8.5-10.1); Osmolality,Calculated 281.8 MOS/KG (273-304); Potassium 2.6 MMOL/L (3.5-5.1)
[2022-10-05] MEDS: metroNIDAZOLE INJ 500 MG/100 ML PREMIX IV SCH (06:28)
[2022-10-05] MEDS ORDERED: MAGNESIUM SULF RIDER 4 GM/100 ML PREMIX IV ONE (08:19)
[2022-10-05] MEDS ORDERED: POTASSIUM CHLORIDE 20 MEQ TABLET PO ONE ×2 (08:30→12:00)
[2022-10-05] MEDS ORDERED: POTASSIUM CHLORIDE RIDER 20 MEQ/100 ML PREMIX IV PRN (08:32)
[2022-10-05] MEDS ORDERED: MAGNESIUM SULF RIDER 2 GM/50 ML PREMIX IV ONE (09:30)
[2022-10-05] MEDS: PANTOPRAZOLE 40 MG TABLET PO SCH (10:08)
[2022-10-05] MEDS ORDERED: FAMOTIDINE 20 MG/2 ML VIAL IV ONE ×2 (11:17→11:20)
[2022-10-05] MEDS ORDERED: SODIUM CHLORIDE 0.9% 250 ML IV SCH (11:30)
[2022-10-05] MEDS ORDERED: TISSUE ADHESIVE 1 EACH APPLICATOR TOP ONE (11:30)
[2022-10-05] MEDS ORDERED: HEPARIN 5,000 UNIT/1 ML VIAL ONE (11:30)
[2022-10-05] MEDS ORDERED: LIDOCAINE 1%/EPI INJ 20 ML VIAL ONE (11:30)
[2022-10-05] MEDS ORDERED: BUPIVACAINE MPF 0.25% 10 ML VIAL ONE (11:30)
[2022-10-05] MEDS ORDERED: cefTRIAXone 1,000 MG VIAL ONE (12:13)
[2022-10-05] MEDS ORDERED: MIDAZOLAM 2 MG/2 ML VIAL ONE (12:22)
[2022-10-05] MEDS ORDERED: LIDOCAINE 2% 5 ML VIAL ONE (12:22)
[2022-10-05] MEDS ORDERED: fentaNYL 100 MCG/2 ML VIAL ONE (12:22)
[2022-10-05] MEDS ORDERED: propofoL 200 MG/20 ML VIAL IV ONE ×2 (12:22→13:29)
[2022-10-05] MEDS ORDERED: KETAMINE 500 MG/10 ML VIAL ONE (13:00)
[2022-10-05] MEDS ORDERED: NITROGLYCERIN SL 0.4 MG TABLET SL PRN (13:07)
[2022-10-05] MEDS ORDERED: SODIUM CHLORIDE 0.9% 100 ML IV ONE (13:38)
[2022-10-05] MEDS ORDERED: SODIUM CHLORIDE 0.9% 250 ML IV ONE (13:43)
[2022-10-05] MEDS: cefTRIAXone 2,000 MG in SODIUM CHLORIDE 0.9% 100 ML IV SCH (13:49)
[2022-10-05] MEDS ORDERED: minoxidiL 10 MG TABLET PO SCH (14:00)
[2022-10-05] MEDS: amLODIPine 10 MG TABLET PO SCH (15:47)
[2022-10-05] MEDS: carvediloL 25 MG TABLET PO SCH (15:47)
[2022-10-05] MEDS: minoxidiL 2.5 MG TABLET PO SCH ×2 (15:47→20:52)
[2022-10-05] MEDS: ONDANSETRON 4 MG/2 ML VIAL IV PRN (18:02)
[2022-10-05] MEDS ORDERED: HYDROmorphone 1 MG/1 ML SYRINGE IV ONE (18:16)
[2022-10-05] MEDS: ROSUVASTATIN 20 MG TABLET PO SCH (20:52)
[2022-10-05] MEDS: TERAZOSIN 5 MG CAPSULE PO SCH (20:52)
[2022-10-06 05:16] LABS: Basophils % 0.3 % (0.0-0.8); Eosinophils # 0.1 10*3/uL (0.0-0.87); Eosinophils % 1.6 % (0.00-10.9); Hematocrit 32.2 VOL% (42.0-52.0); Hemoglobin 10.8 GM/DL (14.0-18.0); Immature Granulocytes % 0.2 %; Immature Granulocytes Absolute 0.02 #; Lymphocytes # 1.4 10*3/uL (1.4-4.0); Lymphocytes % 15.1 % (21.2-54.2); Mean Corpuscular HGB Conc 33.5 GM/DL (32-36); Mean Corpuscular Volume 85.4 FL (87-102); Mean Platelet Volume 9.6 FL (9.6-12.0); Monocytes # 0.5 10*3/uL (0.11-0.8); Monocytes % 5.9 % (1.7-12.7); Neutrophils % 76.9 % (38.7-73.9); Platelet Count 239 T/CUMM (130-400); Red Blood Count 3.77 MC/CUMM (3.8-5.5); Red Cell Distribution Width 14.2 % (9.3-17.3); White Blood Count 8.9 T/CUMM (4-12)
[2022-10-06 05:35] LABS: Calcium 8.6 MG/DL (8.5-10.1); Osmolality,Calculated 283.8 MOS/KG (273-304); Potassium 3.3 MMOL/L (3.5-5.1)
[2022-10-06] MEDS: ONDANSETRON 4 MG/2 ML VIAL IV PRN (08:27)
[2022-10-06] MEDS: MORPHINE 2 MG/1 ML SYRINGE IV PRN (08:30)
[2022-10-06] MEDS: carvediloL 25 MG TABLET PO SCH ×2 (11:29→16:23)
[2022-10-06] MEDS: amLODIPine 10 MG TABLET PO SCH (11:30)
[2022-10-06] MEDS: PANTOPRAZOLE 40 MG TABLET PO SCH (11:30)
[2022-10-06] MEDS: minoxidiL 2.5 MG TABLET PO SCH ×2 (11:30→20:45)
[2022-10-06] MEDS: TERAZOSIN 5 MG CAPSULE PO SCH ×2 (11:31→20:45)
[2022-10-06] MEDS: ASPIRIN EC 81 MG TABLET PO SCH (11:31)
[2022-10-06] MEDS: cefTRIAXone 2,000 MG in SODIUM CHLORIDE 0.9% 100 ML IV SCH (11:40)
[2022-10-06] MEDS: DOCUSATE SODIUM 100 MG CAPSULE PO PRN (16:23)
[2022-10-06] MEDS: ROSUVASTATIN 20 MG TABLET PO SCH (20:45)
[2022-10-07 05:17] LABS: Basophils % 0.2 % (0.0-0.8); Eosinophils # 0.4 10*3/uL (0.0-0.87); Eosinophils % 4.9 % (0.00-10.9); Hematocrit 28.8 VOL% (42.0-52.0); Hemoglobin 9.8 GM/DL (14.0-18.0); Immature Granulocytes % 0.4 %; Immature Granulocytes Absolute 0.03 #; Lymphocytes % 24.6 % (21.2-54.2); Mean Platelet Volume 9.5 FL (9.6-12.0); Monocytes # 0.6 10*3/uL (0.11-0.8); Monocytes % 6.8 % (1.7-12.7); Neutrophils % 63.1 % (38.7-73.9); Platelet Count 243 T/CUMM (130-400); Red Blood Count 3.39 MC/CUMM (3.8-5.5); Red Cell Distribution Width 14.3 % (9.3-17.3); White Blood Count 8.2 T/CUMM (4-12)
[2022-10-07 05:33] LABS: Calcium 8.6 MG/DL (8.5-10.1); Osmolality,Calculated 284.8 MOS/KG (273-304)
[2022-10-07] MEDS ORDERED: POTASSIUM CHLORIDE 20 MEQ TABLET PO ONE (09:00)
[2022-10-07] MEDS: carvediloL 25 MG TABLET PO SCH ×2 (09:07→16:40)
[2022-10-07] MEDS: ASPIRIN EC 81 MG TABLET PO SCH (09:07)
[2022-10-07] MEDS: SEVELAMER CARBONATE 800 MG TABLET PO SCH ×3 (09:07→16:41)
[2022-10-07] MEDS: amLODIPine 10 MG TABLET PO SCH (09:07)
[2022-10-07] MEDS: PANTOPRAZOLE 40 MG TABLET PO SCH (09:07)
[2022-10-07] MEDS: TERAZOSIN 5 MG CAPSULE PO SCH ×2 (09:07→22:00)
[2022-10-07] MEDS ORDERED: HEPARIN 10,000 UNIT/10 ML VIAL IV PRN (10:00)
[2022-10-07] MEDS: minoxidiL 2.5 MG TABLET PO SCH ×3 (13:51→23:08)
[2022-10-07] MEDS: cefTRIAXone 2,000 MG in SODIUM CHLORIDE 0.9% 100 ML IV SCH (13:52)
[2022-10-07] MEDS ORDERED: ALUMINUM/MAGNES/SIMETH MAX STR 30 ML UDCUP PO PRN (20:04)
[2022-10-07] MEDS ORDERED: POLYETHYLENE GLYCOL POWDER 17 GM PACK PO PRN (20:06)
[2022-10-07] MEDS: ROSUVASTATIN 20 MG TABLET PO SCH (21:57)
[2022-10-07] MEDS: DOCUSATE SODIUM 100 MG CAPSULE PO PRN (22:03)
[2022-10-07] MEDS ORDERED: minoxidiL 10 MG TABLET PO SCH (22:30)
[2022-10-08 05:10] LABS: Basophils % 0.4 % (0.0-0.8); Eosinophils # 0.4 10*3/uL (0.0-0.87); Eosinophils % 4.2 % (0.00-10.9); Hematocrit 30.6 VOL% (42.0-52.0); Hemoglobin 9.9 GM/DL (14.0-18.0); Immature Granulocytes % 0.5 %; Immature Granulocytes Absolute 0.04 #; Lymphocytes # 1.4 10*3/uL (1.4-4.0); Lymphocytes % 17.2 % (21.2-54.2); Mean Corpuscular HGB Conc 32.4 GM/DL (32-36); Mean Corpuscular Volume 85.7 FL (87-102); Mean Platelet Volume 9.7 FL (9.6-12.0); Monocytes # 0.7 10*3/uL (0.11-0.8); Monocytes % 7.8 % (1.7-12.7); Neutrophils % 69.9 % (38.7-73.9); Platelet Count 281 T/CUMM (130-400); Red Blood Count 3.57 MC/CUMM (3.8-5.5); White Blood Count 8.4 T/CUMM (4-12)
[2022-10-08 05:30] LABS: Potassium 3.1 MMOL/L (3.5-5.1)
[2022-10-08] MEDS ORDERED: POTASSIUM CHLORIDE 20 MEQ TABLET PO ONE (08:12)
[2022-10-08] MEDS ORDERED: LACTULOSE 20 GM/30 ML UDCUP PO ONE (08:25)
[2022-10-08] MEDS ORDERED: LACTULOSE 20 GM/30 ML UDCUP PO PRN (08:26)
[2022-10-08] MEDS ORDERED: POLYETHYLENE GLYCOL POWDER 17 GM PACK PO SCH (09:00)
[2022-10-08] MEDS: SEVELAMER CARBONATE 800 MG TABLET PO SCH ×2 (09:41→12:14)
[2022-10-08] MEDS: TERAZOSIN 5 MG CAPSULE PO SCH (09:42)
[2022-10-08] MEDS: carvediloL 25 MG TABLET PO SCH (09:42)
[2022-10-08] MEDS: ASPIRIN EC 81 MG TABLET PO SCH (09:42)
[2022-10-08] MEDS: PANTOPRAZOLE 40 MG TABLET PO SCH (09:42)
[2022-10-08] MEDS: minoxidiL 2.5 MG TABLET PO SCH (09:42)
[2022-10-08] MEDS: amLODIPine 10 MG TABLET PO SCH (09:54)
[2022-10-08 11:53] VITALS: BP 118/78
[2022-10-08] MEDS: cefTRIAXone 2,000 MG in SODIUM CHLORIDE 0.9% 100 ML IV SCH ×2 (12:10→12:23)
== END 2022-10-08 13:27 | disposition home or self-care (01) | DRG 907 ==
LOC: N.ED 03:39 → N.EDINP 05:52 → N.3E 14:32
PROVIDERS: ADMIT Hospitalist; ATTEND Hospitalist